=== PATIENT | female | born 1940 | race African-American/Black ===

== ENCOUNTER 2019-09-01 15:32 | Observation (INO) | payer OTHER ==
[2019-09-01 16:55] LABS: Absolute Lymphocytes (CBC) 0.2 K/uL (0.7-4.9); Basophils % 0.2 % (0-1.3); Hematocrit 45.6 % (36.0-45.0); Lymphocytes % 2.1 % (15.3-44.8); MPV 9.4 fL (7.6-11.3); RBC Red Blood Cell Count 5.25 M/uL (3.86-4.86)
[2019-09-01 16:56] LABS: Protime INR 1.34
[2019-09-01 17:10] LABS: ALT/SGPT 25 U/L (12-78); Albumin 3.1 g/dL (3.4-5.0); Alkaline Phosphatase 100 U/L (45-117); BUN Blood Urea Nitrogen 28 mg/dL (7-18); Bicarbonate 25 mmol/L (21-32); Bilirubin Direct 0.5 mg/dL (0-0.2); Bilirubin Total 1.3 mg/dL (0.2-1.0); Glucose Level 104 mg/dL (74-106); NT PRO-BNP 559 pg/mL (<450); Protein, Total 7.7 g/dL (6.4-8.2); Sodium Level 135 mmol/L (136-145); Troponin (Emerg Dept Use Only) < 0.02 ng/mL (0.0-0.045)
[2019-09-01 17:11] LABS: AST/SGOT 46 U/L (15-37); Magnesium 1.6 mg/dL (1.8-2.4); Potassium 3.5 mmol/L (3.5-5.1)
[2019-09-01 17:15] LABS: Urine Bacteria <20 /HPF (<20); Urine Culture Reflex Order NOT NEEDED
[2019-09-01 17:16] LABS: Urine Blood 3+ (NEG); Urine Glucose NEGATIVE (NEG); Urine Protein 3+ (NEG); Urine Specific Gravity >1.030 (1.005-1.030); Urine pH 5.5 (5.0-7.0)
[2019-09-01 17:16] LABS: Urine Coarse Granular Casts 0-5 /LPF (NONE SEEN); Urine Mucus 2+ /HPF (NONE SEEN)
[2019-09-01] MEDS ORDERED: ACETAMINOPHEN 325 MG TABLET ONE (17:41)
[2019-09-01] MEDS ORDERED: NA CHLORIDE 0.9% 250 ML ONE (17:41)
[2019-09-01] MEDS ORDERED: CEFTRIAXONE/SWI 1gm 1 GM/10 ML SYR ONE (17:47)
[2019-09-01 18:08] LABS: Blood Morphology Comment NOT SEEN (NOT SEEN); Platelet Estimate DECR; White Blood Cell Scan OK
[2019-09-01] MEDS ORDERED: PIPER/TAZO/NS 3.375gm 3.375 GM/100 ML BAG ONE (19:07)
[2019-09-01] MEDS ORDERED: MORPHINE 4 MG/ML SYR IV PRN (20:48)
[2019-09-01] MEDS ORDERED: ONDANSETRON 4 MG/2 ML VIAL IV PRN (20:48)
[2019-09-01] MEDS ORDERED: ACETAMINOPHEN 500 MG TAB PO PRN (20:48)
[2019-09-01] MEDS ORDERED: Levofloxacin500mg IV 500 MG/100 ML BAG IV SCH (21:00)
[2019-09-01] MEDS: NA CHLORIDE 0.9% 1,000 ML IV SCH (21:00)
--- NOTE | 2019-09-01 21:40 | EDPHYS ---
[facility] Name: Negrita Shields Age: 78 yrs Sex: Female : 1940 Arrival Date: 09/01/2019 Time: 15:39 Bed 25 Private MD: ED Physician Pardeep Man HPI: 08/31 15:44 This 78 yrs old Black Female presents to ER via EMS with complaints of Shortness Of jmm Breath. 15:44 The patient has shortness of breath at rest. Onset: The symptoms/episode began/occurred jmm gradually, 1 day(s) ago. Duration: The symptoms are continuous. The patient's shortness of breath is aggravated by nothing, is alleviated by nothing. Associated signs and symptoms: Pertinent negatives: non-productive cough, productive cough. This is a 78 year old female with a history of htn, HLP that presents to the ED with complaints of weakness, shortness of breath beginning yesterday. . Historical: - Allergies: 15:43 No Known Allergies; ll1 - PMHx: 15:43 Hypertension; High Cholesterol; ll1 - Immunization history:: Adult Immunizations up to date. - Social history:: Patient/guardian denies using street drugs, Smoking status: Patient denies any tobacco usage or history of. ROS: 17:08 Constitutional: Positive for fever. jmm 17:08 Respiratory: Positive for shortness of breath. 17:08 Abdomen/GI: Negative for nausea and vomiting, vomiting. 17:08 All other systems are negative. Exam: 17:08 Constitutional: This is a well developed, well nourished patient who is awake, alert, jmm and in no acute distress. Head/Face: atraumatic. Eyes: EOMI, no conjunctival erythema appreciated ENT: Moist Mucus Membranes Neck: Trachea midline, Supple Chest/axilla: Normal chest wall appearance and motion. Cardiovascular: Regular rate and rhythm. No edema appreciated Respiratory: Normal respirations, no respiratory distress appreciated Abdomen/GI: Non distended, soft Back: Normal ROM Skin: General appearance color normal MS/ Extremity: Moves all extremities, no obvious deformities appreciated, no edema noted to the lower extremities Neuro: Awake and alert, normal gait Psych: Behavior is normal, Mood is normal, Patient is cooperative and pleasant Vital Signs: 15:35 BP 107 / 61; Pulse 86; Resp 24; Pulse Ox 94% on R/A; jr10 15:39 BP 107 / 61; Pulse 85; Resp 24; Temp 100.6; Pulse Ox 94% on R/A; Pain 0/10; ll1 16:00 BP 115 / 73; Pulse 90; Resp 20; Pulse Ox 96% on R/A; jr10 17:48 BP 95 / 62; Pulse 81; Resp 20; Pulse Ox 93% on R/A; Pain 0/10; jr10 19:13 Pulse 75; Resp 17; Temp 98.0(O); Pulse Ox 95% ; Pain 0/10; mt2 20:28 BP 107 / 64; Pulse 71; Resp 16; Pulse Ox 95% ; Pain 0/10; mt2 21:04 BP 115 / 64; Pulse 18; Resp 19; Temp 98.4(O); Pulse Ox 95% ; Pain 0/10; mt2 22:00 BP 109 / 61; Pulse 83; Resp 17; Pulse Ox 96% on R/A; Pain 0/10; mt2 23:13 BP 111 / 64; Pulse 16; Resp 65; Pulse Ox 94% on R/A; Pain 0/10; mt2 09/01 00:00 BP 113 / 63; Pulse 67; Resp 16; Pulse Ox 96% on R/A; Pain 0/10; 01:00 BP 116 / 64; Pulse 65; Resp 17; Pulse Ox 96% on R/A; Pain 0/10; mt2 02:00 BP 121 / 60; Pulse 72; Resp 19; Pulse Ox 96% on R/A; Pain 0/10; mt2 MDM: 08/31 15:44 Patient medically screened. [facility] 20:22 Data reviewed: vital signs, nurses notes. ED course: I discussed the patient with Dr. evon Fair and Dr. Roland whom accepted admission. . 08/31 15:45 Order name: Basic Metabolic Panel; Complete Time: 17:13 [facility] 08/31 15:45 Order name: CBC with Diff; Complete Time: 18:14 [facility] 08/31 15:45 Order name: LFT's; Complete Time: 17:13 [facility] 08/31 15:45 Order name: Magnesium; Complete Time: 17:13 [facility] 08/31 15:45 Order name: NT PRO-BNP; Complete Time: 17:13 [facility] 08/31 15:45 Order name: PT-INR; Complete Time: 17:09 [facility] 08/31 15:45 Order name: Troponin (emerg Dept Use Only); Complete Time: 17:13 [facility] 08/31 15:45 Order name: COVID-19 [facility] 08/31 15:45 Order name: Urine Microscopic Only; Complete Time: 17:21 [facility] 08/31 15:57 Order name: Procalcitonin; Complete Time: 17:22 [facility] 08/31 15:57 Order name: Blood Culture Adult (2) [facility] 08/31 15:57 Order name: Lactate; Complete Time: 17:13 [facility] 08/31 15:57 Order name: Urine Culture [facility] 08/31 16:58 Order name: CBC Smear Scan; Complete Time: 18:14 [facility] 08/31 15:45 Order name: XRAY Chest (1 view) [facility] 08/31 17:00 Order name: Urine Dipstick--Ancillary (enter results); Complete Time: 17:21 ar 08/31 18:53 Order name: Lipase; Complete Time: 19:19 [facility] 08/31 20:22 Order name: Lactate Sepsis 2 HR Follow-up; Complete Time: 20:22 [facility] 08/31 20:52 Order name: CBC with Automated Diff [facility] 08/31 20:52 Order name: CBC with Automated Diff [facility] 08/31 20:52 Order name: Comprehensive Metabolic Panel [facility] 08/31 20:52 Order name: Comprehensive Metabolic Panel [facility] 08/31 20:52 Order name: Lipid Profile [facility] 08/31 20:52 Order name: Lipid Profile [facility] 08/31 20:52 Order name: Protime (+INR) [facility] 08/31 20:52 Order name: Protime (+INR) [facility] 08/31 20:52 Order name: PTT, Activated Partial Thromb [facility] 08/31 20:52 Order name: PTT, Activated Partial Thromb [facility] 08/31 22:14 Order name: Protime (+INR); Complete Time: 22:15 [facility] 08/31 22:14 Order name: PTT, Activated Partial Thromb; Complete Time: 22:15 [facility] 08/31 15:45 Order name: EKG; Complete Time: 15:46 [facility] 08/31 15:45 Order name: Cardiac monitoring; Complete Time: 15:51 [facility] 08/31 15:45 Order name: EKG - Nurse/Tech; Complete Time: 16:57 [facility] 08/31 15:45 Order name: IV Saline Lock; Complete Time: 15:51 [facility] 08/31 15:45 Order name: Labs collected and sent; Complete Time: 16:57 [facility] 08/31 15:45 Order name: O2 Per Protocol; Complete Time: 15:51 [facility] 08/31 15:45 Order name: O2 Sat Monitoring; Complete Time: 15:51 [facility] 08/31 15:45 Order name: Urine Dipstick-Ancillary (obtain specimen); Complete Time: 16:55 [facility] 08/31 17:22 Order name: CT Chest For PE Angio [facility] 08/31 17:22 Order name: CT Abd/Pelvis - IV Contrast Only [facility] 08/31 18:46 Order name: US Abdomen Limited [facility] 08/31 20:52 Order name: CONS Pharmacy Consult [facility] 08/31 20:52 Order name: CONS Physician Consult [facility] 08/31 20:52 Order name: NPO [facility] 08/31 21:57 Order name: CT; Complete Time: 22:01 [facility] 08/31 22:00 Order name: CT; Complete Time: 22:01 [facility] 08/31 22:45 Order name: US; Complete Time: 22:59 [facility] 08/31 22:47 Order name: RAD; Complete Time: 22:59 EDMO Administered Medications: 17:47 Drug: Rocephin - (cefTRIAXone) 1 grams {Note: slow IVP per pharmacy formulary and [facility] protocol.} Route: IVPB; Infused Over: 30 mins; Site: right femoral; 19:00 Follow up: IV Status: Completed infusion mt2 19:01 Follow up: Response: No adverse reaction jr10 17:48 Drug: Tylenol 650 mg Route: PO; jr10 19:04 Follow up: Response: No adverse reaction 10 17:48 Drug: NS 0.9% 250 ml Route: IV; Rate: calculated rate; Site: right forearm; jr10 18:59 Follow up: Response: No adverse reaction; IV Status: Completed infusion 10 19:12 Drug: Zosyn 3.375 grams Route: IVPB; Infused Over: 60 mins; Site: left forearm; mt2 19:53 Follow up: Response: No adverse reaction; IV Status: Completed infusion mt2 19:57 Drug: NS 0.9% 1000 ml Route: IV; Rate: 1 bolus; Site: left forearm; mt2 21:01 Follow up: Response: No adverse reaction; IV Status: Completed infusion; IV Intake: mt2 1000ml Disposition: 09/01/19 20:30 Hospitalization ordered by Parag Roland for Inpatient Admission. Preliminary diagnosis is Acute cholecystitis. - Bed requested for Telemetry/MedSurg (Inpatient). - Status is Inpatient Admission. sv - Condition is Stable. - Problem is new. - Symptoms are unchanged. Addendum: 09/03/2019 23:06 Co-signature as Attending Physician, Pardeep Man MD. r n Signatures: Dispatcher [employer] EDAlexandra Young Stephanie, RN RN Awais Potts PA PA jmm Nieto, Roman, MD MD rn Garcia, Cindy RN TYE Jose Alejandro Herrera RN RN 1 Suly Tellez RN RN ar2 Yue Romero, RN RN jr10 Corrections: (The following items were deleted from the chart) 08/31 21:56 20:30 Hospitalization Ordered by Parag Roland MD for Inpatient Admission. Preliminary cg diagnosis is Acute cholecystitis. Bed requested for Telemetry/MedSurg (Inpatient). Status is Inpatient Admission. Condition is Stable. Problem is new. Symptoms are unchanged. [facility] 09/01 08:46 08/31 21:56 09/01/2019 20:30 Hospitalization Ordered by Parag Roland MD for Inpatient bd Admission. Preliminary diagnosis is Acute cholecystitis. Bed requested for [facility] ER HOLD. Status is Inpatient Admission. Condition is Stable. Problem is new. Symptoms are unchanged. 09/01 09:36 08:46 09/01/2019 20:30 Hospitalization Ordered by Parag Roland MD for Inpatient sv Admission. Preliminary diagnosis is Acute cholecystitis. Bed requested for Telemetry/MedSurg (Inpatient). Status is Inpatient Admission. Condition is Stable. Problem is new. Symptoms are unchanged. bd
--- NOTE | 2019-09-01 21:40 | ER ---
Nurse's Notes [facility] Name: Negrita Shields Age: 78 yrs Sex: Female : 1940 Arrival Date: 09/01/2019 Time: 15:39 Bed 25 Private MD: Diagnosis: Acute cholecystitis Presentation: 08/31 15:39 Chief complaint: EMS states: EMS was called by patients daughter for SOB and altered ll1 mental status. EMS had to help her up, unable to move well. EMS reported strong smell of urine, possible UTI. Patient didn't know she had fever. 20 G L wrist 200 ml NS bolus given. Fingerstick 114. 91% RA initially, HR 97, resp 30 for EMS. Coronavirus screen: Patient reports a cough. Patient reports shortness of breath or difficulty breathing. Patient reports a measured and/or subjective temperature greater than 100.4F. Patient denies travel on a cruise ship or to a country the [facility] currently lists as an affected area. Patient denies contact with known and/or suspected case of COVID-19. Patient instructed to continue to wear a mask when interacting with others. Patient moved to private room, placed in contact and droplet isolation with eye protection until further assessment. Ebola Screen: Patient denies travel to an Ebola-affected area in the 21 days before illness onset. Initial Sepsis Screen: Does the patient meet any 2 criteria? RR > 20 per min. Risk Assessment: Do you want to hurt yourself or someone else? Patient reports no desire to harm self or others. Onset of symptoms was September 01, 2019. 15:39 Method Of Arrival: EMS ll1 15:39 Acuity: TAYLOR 3 ll1 19:30 Initial Sepsis Screen: Does the patient have a suspected source of infection? Yes: mt2 Acute abdominal pain. Triage Assessment: 19:30 Respiratory: Reports. mt2 19:30 Respiratory: Onset: The symptoms/episode began/occurred gradually. mt2 22:00 General: Appears in no apparent distress. Behavior is cooperative. Respiratory: Airway mt2 is patent Respiratory effort is unlabored, Respiratory pattern is regular. Historical: - Allergies: 15:43 No Known Allergies; ll1 - PMHx: 15:43 Hypertension; High Cholesterol; ll1 - Immunization history:: Adult Immunizations up to date. - Social history:: Patient/guardian denies using street drugs, Smoking status: Patient denies any tobacco usage or history of. Screenin:00 Abuse screen: Denies threats or abuse. Denies injuries from another. Nutritional jr10 screening: No deficits noted. Tuberculosis screening: No symptoms or risk factors identified. Fall Risk No fall in past 12 months (0 pts). No secondary diagnosis (0 pts). IV access (20 points). Ambulatory Aid- Crutches/Cane/Walker (15 pts). Gait- Weak (10 pts.). Mental Status- Oriented to own ability (0 pts). Assessment: 16:00 Reassessment: Pt family contact information Bushra (daughter): [phone]. General: jr10 Appears in no apparent distress. Behavior is calm, cooperative. Pain: Denies pain. Neuro: No deficits noted. Level of Consciousness is awake, alert, obeys commands, Oriented to person, place, time. Cardiovascular: No deficits noted. Rhythm is regular. Respiratory: Airway is patent Respiratory effort is even, unlabored, Respiratory pattern is symmetrical, tachypnea the patient has mild shortness of breath Parent/caregiver reports the patient having shortness of breath at rest EMS reports RA sats 91%, pt noted to be 95% on RA upon arrival, denies the use of chronic home O2 use. GI: No deficits noted. : Denies burning with urination, inability to void, pain with urination flank(s) Parent/caregiver report the patient having family reports that pt urine "smells like a UTI". EENT: Oral mucosa is dry. Derm: No deficits noted. Musculoskeletal: No deficits noted. 19:13 Reassessment: Patient and/or family updated on plan of care and expected duration. Pain mt2 level reassessed. Patient denies pain at this time. Respiratory: Airway is patent Respiratory effort is unlabored, Respiratory pattern is regular. 20:27 Reassessment: Patient and/or family updated on plan of care and expected duration. Pain mt2 level reassessed. Patient denies pain at this time. General: Appears comfortable, Behavior is cooperative. Respiratory: Airway is patent Breath sounds are diminished bilaterally. in left posterior lower lobe and right posterior lower lobe. 21:03 Reassessment: Patient and/or family updated on plan of care and expected duration. Pain mt2 level reassessed. PT TO BE ADMITTED. DAUGHTER BROUGHT IN SUITCASE AND PICKED UP ID AND HOME MEDS Patient denies pain at this time. General: Appears comfortable, Behavior is cooperative. 22:00 Reassessment: Patient and/or family updated on plan of care and expected duration. Pain mt2 level reassessed. PATIENT NOTIFIED OF ED HOLD Patient denies pain at this time. 23:07 Reassessment: Patient and/or family updated on plan of care and expected duration. Pain mt2 level reassessed. Patient denies pain at this time. General: Appears in no apparent distress. comfortable, Behavior is cooperative. Pain: Denies pain. 09/01 00:00 General: Appears in no apparent distress. comfortable, Behavior is calm, quiet. wh 00:41 Reassessment: Patient and/or family updated on plan of care and expected duration. Pain wh level reassessed. Patient denies pain at this time. 01:20 Reassessment: Patient and/or family updated on plan of care and expected duration. Pain mt2 level reassessed. Patient denies pain at this time. General: Appears in no apparent distress. comfortable, Behavior is calm, quiet. 02:00 Reassessment: Patient and/or family updated on plan of care and expected duration. Pain mt2 level reassessed. Patient denies pain at this time. General: Appears in no apparent distress. comfortable, Behavior is calm, quiet. Vital Signs: 08/31 15:35 BP 107 / 61; Pulse 86; Resp 24; Pulse Ox 94% on R/A; jr10 15:39 BP 107 / 61; Pulse 85; Resp 24; Temp 100.6; Pulse Ox 94% on R/A; Pain 0/10; ll1 16:00 BP 115 / 73; Pulse 90; Resp 20; Pulse Ox 96% on R/A; jr10 17:48 BP 95 / 62; Pulse 81; Resp 20; Pulse Ox 93% on R/A; Pain 0/10; jr10 19:13 Pulse 75; Resp 17; Temp 98.0(O); Pulse Ox 95% ; Pain 0/10; mt2 20:28 BP 107 / 64; Pulse 71; Resp 16; Pulse Ox 95% ; Pain 0/10; mt2 21:04 BP 115 / 64; Pulse 18; Resp 19; Temp 98.4(O); Pulse Ox 95% ; Pain 0/10; mt2 22:00 BP 109 / 61; Pulse 83; Resp 17; Pulse Ox 96% on R/A; Pain 0/10; mt2 23:13 BP 111 / 64; Pulse 16; Resp 65; Pulse Ox 94% on R/A; Pain 0/10; mt2 09/01 00:00 BP 113 / 63; Pulse 67; Resp 16; Pulse Ox 96% on R/A; Pain 0/10; 01:00 BP 116 / 64; Pulse 65; Resp 17; Pulse Ox 96% on R/A; Pain 0/10; mt2 02:00 BP 121 / 60; Pulse 72; Resp 19; Pulse Ox 96% on R/A; Pain 0/10; mt2 ED Course: 08/31 15:39 Patient arrived in ED. ll1 15:40 Awais Yin PA is PHCP. m 15:40 Pardeep Man MD is Attending Physician. m 15:42 Triage completed. ll1 15:43 Arm band placed on Patient placed in an exam room, on a stretcher. ll1 15:45 Maintain EMS IV. Dressing intact. Good blood return noted. Gauge \\T\\ site: 20 G to left jr10 hand, saline locked at present. 15:49 Yue Romero RN is Primary Nurse. jr10 16:00 No apparent distress. jr10 16:00 Patient has correct armband on for positive identification. Placed in gown. Bed in low jr10 position. Call light in reach. Side rails up X2. child monitor on. Pulse ox on. NIBP on. 16:00 Inserted saline lock: 20 gauge in left forearm, using aseptic technique. IV is patent, jr10 is intact, Flushed. 16:00 First set of blood cultures drawn by ED staff. jp3 16:15 Second set of blood cultures drawn by me. jp3 19:06 Report given to TYE Tubbs. jr10 19:12 Primary Nurse role handed off by Yue Romero, TYE mt2 19:12 Suly Tellez RN is Primary Nurse. mt2 19:20 Repeat lab(s) drawn. by tx, sent to lab. jp3 19:30 No provider procedures requiring assistance completed. mt2 20:30 Parag Roland MD is Hospitalizing Provider. [facility] 22:41 Patient admitted, IV remains in place. mt2 Administered Medications: 17:47 Drug: Rocephin - (cefTRIAXone) 1 grams {Note: slow IVP per pharmacy formulary and 10 protocol.} Route: IVPB; Infused Over: 30 mins; Site: right femoral; 19:00 Follow up: IV Status: Completed infusion mt2 19:01 Follow up: Response: No adverse reaction jr10 17:48 Drug: Tylenol 650 mg Route: PO; jr10 19:04 Follow up: Response: No adverse reaction jr10 17:48 Drug: NS 0.9% 250 ml Route: IV; Rate: calculated rate; Site: right forearm; jr10 18:59 Follow up: Response: No adverse reaction; IV Status: Completed infusion jr10 19:12 Drug: Zosyn 3.375 grams Route: IVPB; Infused Over: 60 mins; Site: left forearm; mt2 19:53 Follow up: Response: No adverse reaction; IV Status: Completed infusion mt2 19:57 Drug: NS 0.9% 1000 ml Route: IV; Rate: 1 bolus; Site: left forearm; mt2 21:01 Follow up: Response: No adverse reaction; IV Status: Completed infusion; IV Intake: mt2 1000ml Intake: 21:01 IV: 1000ml; Total: 1000ml. mt2 Outcome: 20:30 Decision to Hospitalize by Provider. [facility] 22:41 Admitted to ER Hold. Please see [facility] for further documentation. mt2 22:41 Condition: stable 22:41 Instructed on the need for admit. 09/01 09:36 Patient left the ED. sv Signatures: Patience Trevizo RN Awais Douglas PA PA [facility] Enid Cali Jacob jp3 Jose Alejandro Herrera RN RN ll1 Suly Tlelez RN RN mt2 Yue Romero RN RN jr10
--- NOTE | 2019-09-01 21:46 | RAD REPORT ---
EXAM DESCRIPTION: CT - Chest For Pe Angio - 09/01/2019 9:39 pm CLINICAL HISTORY: Chest pain. SOB COMPARISON: No comparisons TECHNIQUE: CT angiogram of the pulmonary arteries was performed with MIP. All CT scans are performed using dose optimization technique as appropriate and may include automated exposure control or mA/KV adjustment according to patient size. FINDINGS: No evidence of pulmonary thromboembolism. No acute aortic finding demonstrated. Mild linear atelectasis is seen in the right lung base. The lungs are otherwise clear. No significant pericardial or pleural fluid. No concerning bony finding. IMPRESSION: No evidence of pulmonary thromboembolism. Mild right lung base linear atelectasis.
--- NOTE | 2019-09-01 21:55 | RAD REPORT ---
EXAM DESCRIPTION: CTAbdomen Pelvis W Contrast - 09/01/2019 9:39 pm CLINICAL HISTORY: Abdominal pain. SOB, UTI COMPARISON: No comparisons TECHNIQUE: Biphasic CT imaging of the abdomen and pelvis was performed with 100 ml non-ionic IV cont rast. All CT scans are performed using dose optimization technique as appropriate and may include automated exposure control or mA/KV adjustment according to patient size. FINDINGS: The lung bases are clear. The liver, spleen, pancreas, adrenal glands and kidneys are within normal limits. Gallbladder is sign ificantly inflamed and enlarged compatible with acute cholecystitis. No abscess evident. No bowel obstruction, free air, free fluid or abscess. The appendix is normal. No evidence of signi ficant lymphadenopathy. Calcified fibroids are present in the uterus. Moderate lumbosacral degenerative changes. IMPRESSION: Acute cholecystitis.
[2019-09-01 22:12] LABS: Protime INR 1.35
--- NOTE | 2019-09-01 22:41 | RAD REPORT ---
EXAM DESCRIPTION: US - Abdomen Exam Limited - 09/01/2019 10:14 pm CLINICAL HISTORY: FEVER Right upper quadrant pain COMPARISON: <Comparisons> FINDINGS: The gallbladder demonstrates large shadowing gallstone. Gallbladder wall is thickened with pericholecystic inflammatory fluid present. The common bile duct is normal measuring 4 mm. The liver demonstrates no findings of intrahepatic biliary dilatation. IMPRESSION: Acute cholecystitis.
--- NOTE | 2019-09-01 22:46 | RAD REPORT ---
EXAM DESCRIPTION: RAD - Chest Single View - 09/01/2019 10:20 pm CLINICAL HISTORY: SOB Chest pain. COMPARISON: Chest Single View dated 03/05/2017; Chest For Pe Angio dated 09/01/2019 FINDINGS: Portable technique limits examination quality. The lungs are grossly clear. The heart is normal in size. No displaced fractures. IMPRESSION: No acute intrathoracic process suspected.
[2019-09-02 00:53] VITALS: BMI 40.4
[2019-09-02] MEDS ORDERED: NA CHLORIDE 0.9% 1,000 ML ONE (01:12)
[2019-09-02] MEDS ORDERED: METRONIDAZOLE 500mg IVPB 500 MG/100 ML BAG IV ONE ×2 (01:12→05:27)
[2019-09-02] MEDS ORDERED: Levofloxacin500mg IV 500 MG/100 ML BAG IV ONE ×2 (02:00→02:52)
[2019-09-02 04:20] LABS: Protime INR 1.3
[2019-09-02 04:27] LABS: Absolute Lymphocytes (CBC) 0.6 K/uL (0.7-4.9); Basophils % 0.2 % (0-1.3); Hematocrit 40.6 % (36.0-45.0); Lymphocytes % 5.1 % (15.3-44.8); MPV 9.3 fL (7.6-11.3); RBC Red Blood Cell Count 4.61 M/uL (3.86-4.86)
[2019-09-02 04:32] LABS: Albumin 2.5 g/dL (3.4-5.0); Bilirubin Total 0.8 mg/dL (0.2-1.0); Potassium 3.3 mmol/L (3.5-5.1); Protein, Total 6.9 g/dL (6.4-8.2)
[2019-09-02] MEDS: METRONIDAZOLE 500mg IVPB 500 MG/100 ML BAG IV SCH ×3 (05:16→11:07)
[2019-09-02 10:12] VITALS: O2SAT 96
--- NOTE | 2019-09-02 10:54 | EKG ---
Test Date: 2019-09-01 Test Time: 16:25:56 Title Vehicle Service Attendant: KAILA MEASUREMENT RESULTS: Intervals: Rate: 84 MD: 140 QRSD: 90 QT: 354 QTc: 418 [place]: P: 59 MD: 140 QRS: 36 T: 69 INTERPRETIVE STATEMENTS: Normal sinus rhythm Normal ECG Compared to ECG 03/05/2017 15:33:30 Sinus bradycardia no longer present Electronically Signed On 09-02-19 10:53:22 CDT by Gui Jennings
[2019-09-02] MEDS: NA CHLORIDE 0.9% 1,000 ML IV SCH (10:55)
--- NOTE | 2019-09-02 11:16 | P.HP ---
Certification for Inpatient Patient admitted to: Observation With expected LOS: <2 Midnights Patient will require the following post-hospital care: None Practitioner: I am a practitioner with admitting privileges, knowledge of patient current condition, hospital course, and medical plan of care. Services: Services provided to patient in accordance with Admission requirements found in Title 42 Section 412.3 of the Code of Federal Regulations Patient History Date of Service: 09/01/19 Reason for admission: Epigastric tenderness; intractable nausea vomiting History of Present Illness: patient is a 78-year-old female who came to the hospital with abdominal pain. Pain was mainly in the right upper quadrant. CT revealed that patient may have obstructive stone. Patient's diagnosis was acute cholecystitis. However, patient's clinical symptoms are markedly improving. Patient will be admitted to the hospital for further workup. Since her pain improved and will dispense the surgery if need to repeat any imaging studies. If clinically doing much better and possibly go home with outpatient follow up in the morning. Allergies No Known Allergies Allergy (Verified 09/02/19 01:46) Home Medications: Atenolol [Tenormin] 1 tab PO DAILY 09/02/19 Simvastatin 20 mg PO BEDTIME 09/02/19 Valsartan/Hydrochlorothiazide [Valsartan-Hctz 160-12.5 mg Tab] 1 tab PO DAILY 09/02/19 - Past Medical/Surgical History Has patient received pneumonia vaccine in the past: Yes Diabetic: No -: HYPERTENSION -: HIGH CHOLESTEROL Past Surgical History: Patient denies surgical history - Family History Father Family History: Reviewed- Non-Contributory - Social History Smoking Status: Never smoker Alcohol use: No CD- Drugs: No Caffeine use: Yes Place of Residence: Home Review of Systems 10-point ROS is otherwise unremarkable Physical Examination - Vital Signs Temperature: 98.3 F Blood Pressure: 150/74 Pulse: 70 Respirations: 18 Pulse Ox (%): 95 - Physical Exam General: Alert, In no apparent distress, Oriented x3 HEENT: Atraumatic, PERRLA, Mucous membr. moist/pink, EOMI, Sclerae nonicteric Neck: Supple, 2+ carotid pulse no bruit, No LAD, Without JVD or thyroid abnormality Respiratory: Clear to auscultation bilaterally, Normal air movement Cardiovascular: Regular rate/rhythm, Normal S1 S2, No murmurs Gastrointestinal: Normal bowel sounds, Soft and benign, Non-distended, No tenderness Musculoskeletal: No tenderness Integumentary: No rashes Neurological: Normal gait, Normal speech, Normal strength at 5/5 x4 extr, Normal tone, Sensation intact, Cranial nerves 3-12 intact, Normal affect Lymphatics: No axilla or inguinal lymphadenopathy - Studies Laboratory Data (last 24 hrs) 09/01/19 16:14: Lipase 27 L 09/01/19 16:14: PT 15.7 H, INR 1.34 09/01/19 16:14: WBC 11.8 H, Hgb 15.0, Hct 45.6 H, Plt Count 154 09/01/19 16:14: Sodium 135 L, Potassium 3.5, BUN 28 H, Creatinine 1.50 H, Glucose 104, Magnesium 1.6 L, Total Bilirubin 1.3 H, AST 46 H, ALT 25, Alkaline Phosphatase 100 Assessment & Plan - Problems (Diagnosis) (1) Right upper quadrant abdominal pain Current Visit: Yes Status: Acute (2) Acute cholecystitis Current Visit: Yes Status: Acute - Plan Plan: 1. IV antibiotics 2. Pain medication as tolerated 3. advanced diet in the morning 4. discuss with surgery further options for patient's care 5. GI DVT prophylaxis Discharge Plan: Home Plan to discharge in: 48 Hours - Advance Directives Does patient have a Living Will: No Does patient have a Durable POA for Healthcare: No - Code Status/Comfort Care Code Status Assessed: Yes Code Status: Full Code Critical Care: No Time Spent Managing PTS Care (In Minutes): 50
[2019-09-02 12:34] LABS: Absolute Lymphocytes (CBC) 0.5 K/uL (0.7-4.9); Basophils % 0.2 % (0-1.3); Hematocrit 42.9 % (36.0-45.0); Lymphocytes % 4.4 % (15.3-44.8); MPV 8.9 fL (7.6-11.3); RBC Red Blood Cell Count 4.87 M/uL (3.86-4.86)
[2019-09-02 12:36] VITALS: BP 147/75; TEMP 99
[2019-09-02 12:42] LABS: Potassium 3.1 mmol/L (3.5-5.1)
--- NOTE | 2019-09-02 14:44 | P.DS ---
Admission Date: 09/01/19 Discharge Date: 09/03/19 Disposition: ROUTINE DISCHARGE Discharge Condition: GOOD Reason for Admission: Epigastric tenderness; intractable nausea vomiting Brief History of Present Illness: 78-year-old female who came to the hospital with abdominal pain. Pain was mainly in the right upper quadrant. CT revealed that patient may have obstructive stone. Patient's diagnosis was acute cholecystitis. However, patient's clinical symptoms are markedly improving. Patient will be admitted to the hospital for further workup. Since her pain improved and will dispense the surgery if need to repeat any imaging studies. If clinically doing much better and possibly go home with outpatient follow up in the morning. Hospital Course: The patient was admitted and was monitored closely. started on IV antibiotics along with pain control. The patient was started on IV hydration as well. Surgery was consulted. Surgery recommended conservative management with outpatient follow up and continued antibiotic. Patient wanted go home as well and is being discharged home today in a stable condition with advice to follow up with PCP in 1 week and also with surgery in 1-2 weeks Vital Signs/Physical Exam: Temp Pulse Resp BP Pulse Ox 99 F 72 20 147/75 H 95 09/02/19 12:00 09/02/19 12:00 09/02/19 12:00 09/02/19 12:00 09/02/19 12:00 General: Alert, In no apparent distress HEENT: Atraumatic, Normocephalic Neck: Supple Respiratory: Clear to auscultation bilaterally Cardiovascular: Regular rate/rhythm, Normal S1 S2 Capillary refill: <2 Seconds Gastrointestinal: Soft and benign, W/out hepatosplenomegaly, No tenderness Musculoskeletal: No clubbing Integumentary: No rashes, No significant lesion Neurological: Normal speech, Normal strength at 5/5 x4 extr Lymphatics: No axilla or inguinal lymphadenopathy Laboratory Data at Discharge: WBC 11.6 K/uL (4.3-10.9) H 09/02/19 12:13 Hgb 14.1 g/dL (12.0-15.0) 09/02/19 12:13 Hct 42.9 % (36.0-45.0) 09/02/19 12:13 Plt Count 130 K/uL (152-406) L 09/02/19 12:13 PT 15.3 SECONDS (9.5-12.5) H 09/02/19 03:50 INR 1.30 09/02/19 03:50 APTT 28.8 SECONDS (24.3-36.9) 09/02/19 03:50 Sodium 141 mmol/L (136-145) 09/02/19 12:13 Potassium 3.1 mmol/L (3.5-5.1) L 09/02/19 12:13 BUN 25 mg/dL (7-18) H 09/02/19 12:13 Creatinine 1.08 mg/dL (0.55-1.3) 09/02/19 12:13 Glucose 85 mg/dL (74-106) 09/02/19 12:13 Magnesium 1.6 mg/dL (1.8-2.4) L 09/01/19 16:14 Total Bilirubin 0.8 mg/dL (0.2-1.0) 09/02/19 03:50 AST 44 U/L (15-37) H 09/02/19 03:50 ALT 22 U/L (12-78) 09/02/19 03:50 Alkaline Phosphatase 72 U/L (45-117) 09/02/19 03:50 Triglycerides 130 mg/dL (<150) 09/02/19 03:50 Cholesterol 119 mg/dL (<200) 09/02/19 03:50 HDL Cholesterol 17 mg/dL (40-60) L 09/02/19 03:50 Cholesterol/HDL Ratio 7.00 09/02/19 03:50 Lipase 27 U/L (73-393) L 09/01/19 16:14 Home Medications: Amox/Clavulanate [Augmentin 875-125 Tab] 1 each PO BID #14 tab 09/02/19 Atenolol [Tenormin] 1 tab PO DAILY 09/02/19 Codeine/APAP [Tylenol W/Codeine #3 tab] 1 tab PO Q6HP PRN #15 tab 09/02/19 Pantoprazole [Protonix Tab] 40 mg PO DAILY #10 tab 09/02/19 Simvastatin 20 mg PO BEDTIME 09/02/19 Valsartan/Hydrochlorothiazide [Valsartan-Hctz 160-12.5 mg Tab] 1 tab PO DAILY 09/02/19 New Medications: Amox/Clavulanate [Augmentin 875-125 Tab] 1 each PO BID #14 tab Pantoprazole [Protonix Tab] 40 mg PO DAILY #10 tab Codeine/APAP [Tylenol W/Codeine #3 tab] 1 tab PO Q6HP PRN #15 tab PRN Reason: Pain Patient Discharge Instructions: OK TO DC IV AND DC HOME. FOLLOW-UP WITH PRIMARY CARE PROVIDER IN 1-2 WEEKS. FOLLOW-UP WITH SURGERY IN 1-2 WEEKS. RETURN TO THE ER IF SYMPTOMS WORSEN. CALL DR. LEVY AT [phone] IF ANY QUESTIONS REGARDING HOSPITAL STAY. PLEASE CALL THE FLOOR AT [phone] IF ANY MEDICATION OR NURSING QUESTIONS. Diet: Regular Activity: Fall precautions Followup: Lev Fair MD [ACTIVE - CAN ADMIT] - Time spent managing pt's care (in minutes): 40
--- NOTE | 2019-09-02 14:45 | P.CNS ---
Date of Consult: 09/02/19 PC: I was asked to see this 78-year-old female regards to her right upper quadrant abdominal pain for diagnosis and treatment. HPC: Patient experiencing sh upper abdominal pain last night. Describes it as very severe, not as bad as labor pain. Radiating straight to her back, between her shoulder blades right along her bra line. She has been having this pain off and on for the last few months. Said this is the worst it has ever been. She is not sure what triggers it, but it seen to be food related. PMH: Has had some heart problems in the past PSHx: Denies any prior surgeries SOC: No known allergies SYS REVIEW: No cough, wheeze, shortness of breath. No chest pain or palpitations. Denies any urinary complaints. Says she is very independent, is able to look after herself at home. O/E awake alert vital signs are stable patient is hungry, asking for food and anxious to go home. HEENT: Not jaundice Chest: Chest movement equal bilateral ABD: Obese but soft nontender no masses palpable. No guarding or rebound. LOCO: Intact DATA: Has documented gallstones, miles cystitis IMPRESSION: Chronic coli cystitis with biliary colic PLAN: The patient at the current time appears to be pain free responding well to conservative management. I am going to give her a full diet. She is not symptomatic at the time of examination. She is adamant that she will not go to the operating room at this time. I have recommended a that she visit her platemaker letting him know that she sheath may end up in the emergency/operating room over the next few weeks or months. In that way any pending cardiac problems per could be addressed. The she is going to come see me next week in my office, so we can sit down once again at [facility] and she can bring a family member so that we could discuss her pathophysiology, the possible remedies, operations, and their potential complications. She is very agreeable to this and looks forward to meeting me next week. I will talk to her hospitalist and reviewed this with him. Anticipate discharge later today.
[2019-09-02] MEDS ORDERED: Levofloxacin 250mg IV 250 MG/50 ML BAG IV SCH (21:00)
--- NOTE | 2019-09-02 23:27 | P.PN ---
Subjective Date of Service: 09/02/19 Subjective: Improving (Patient looks to be doing well. However, labs is pending and surgery evaluation pending.) Review of Systems 10-point ROS is otherwise unremarkable Physical Examination - Vital Signs Temperature: 99 F Blood Pressure: 147/75 Pulse: 72 Respirations: 20 Pulse Ox (%): 95 - Physical Exam General: Alert, In no apparent distress, Oriented x3 Cardiovascular: Regular rate/rhythm, Normal S1 S2, Systolic murmur Gastrointestinal: Normal bowel sounds, Soft and benign, Non-distended, No rebound, No guarding, Tenderness - Studies Medications List Reviewed: Yes Assessment & Plan - Problems (Diagnosis) (1) Right upper quadrant abdominal pain Status: Acute (2) Acute cholecystitis Status: Acute - Plan Plan: 1. Continue with IV antibiotics 2. Pain medication as tolerated 3. Advance diet as tolerated 4. Discuss with surgery further options for patient's care 5. Repeat labs pending. 6. GI DVT prophylaxis Discharge Plan: Home Plan to discharge in: 24 Hours - Advance Directives Does patient have a Living Will: No Does patient have a Durable POA for Healthcare: No - Code Status/Comfort Care Code Status: Full Code Critical Care: No Time Spent Managing PTS Care (In Minutes): 25
== END 2019-09-02 16:00 | disposition home or self-care (01) ==
LOC: ER 15:32 → INTOOBSV 20:49 → ERHOLD 20:49 → 4TH 09-02 09:04
PROVIDERS: ADMIT Hospitalist; ATTEND Hospitalist
DX: K80.12 Calculus of gallbladder with acute and chronic cholecystitis without obstruction (principal); I10 Essential (primary) hypertension; E78.00 Pure hypercholesterolemia, unspecified; R06.02 Shortness of breath; R50.9 Fever, unspecified; Z20.828 Contact with and (suspected) exposure to other viral communicable diseases
CPT/HCPCS: 96365; 96367; 96361; 96368; 93005; 87040 ×2; 87088; 85025 ×3; 80048 ×2; 36415; 83735; 87205 ×3; 85610 ×3; 80061; 80076; 83605 ×3; 85730 ×2; 87077 ×2; 87186 ×2; 84484; 83690; 80053; 84145 ×2; 83880; 71275; 74177; 71045; 76705; 99285; Q9967; J2543; J0696; J7050; J7030 ×3; G0378 ×2; 81003; 81015; 87086; U0002

== ENCOUNTER 2019-09-24 10:02 | Observation (INO) | payer OTHER ==
[2019-09-24] MEDS ORDERED: Ringers Lactate 1,000 ML IV ONE (10:46)
[2019-09-24] MEDS ORDERED: CEFOXITIN/SWI 1gm 1 GM/10 ML SYR ONE (10:47)
[2019-09-24] MEDS: POTASSIUM CL SA 10 MEQ TAB PO ONE ×2 (11:13→17:52)
--- NOTE | 2019-09-24 11:35 | P.HP ---
Date of Service: 09/24/19 PC: This 78-year-old female presents for laparoscopic cholecystectomy with intraoperative cholangiogram. HPC: Patient had been in the hospital recently. She had acute cholecystitis at the time. She was treated with antibiotics. During the interim time. After she was discharged, she was seen by our boarder steam and has received cardiac clearance. She presents now because she starting in her pain back. PMH: Hypertension PSHx: Tubal ligation SOC: No known allergies, takes atenolol, simvastatin, and losartan SYS REVIEW: No cough, wheeze, shortness of breath. No chest pain or palpitations. Has some frequency and chronic dysuria with occasional incontinence. Bowel have a normal. O/E awake alert comfortable vital signs are stable HEENT: Not jaundiced Chest: Chest movement equal bilaterally ABD: Mild right upper quadrant tenderness LOCO: Intact DATA: Has documented gallstones IMPRESSION: Cholelithiasis with biliary colic PLAN: I will take her today for laparoscopic possible open cholecystectomy. The risks of this procedure have been discussed. The possibility of bleeding, infection, injury to bile ducts blood vessels intestines has been described. The possible need for an open and/or further surgeries and procedures was discussed. I have outlined the surgery with both the patient and her daughters. They understand wants to proceed.
[2019-09-24] MEDS ORDERED: ROCURONIUM 50 MG/5 ML VIAL IV ONE ×2 (12:04→13:38)
[2019-09-24] MEDS ORDERED: propofoL 200 MG/20 ML VIAL IV ONE (12:04)
[2019-09-24] MEDS ORDERED: FENTANYL CITR 100 MCG/2 ML ONE ×3 (12:04→14:05)
[2019-09-24] MEDS ORDERED: LIDOCAINE 1% MPF 5 ML VIAL ONE (12:05)
[2019-09-24] MEDS ORDERED: EPHEDRINE SULF 50 MG/ML VIAL ONE (12:17)
[2019-09-24] MEDS ORDERED: NS 0.9% VIAL 10 ML ONE (12:17)
[2019-09-24] MEDS ORDERED: dexAMETHasone 10 MG/ML VIAL ONE (12:53)
[2019-09-24] MEDS ORDERED: KETOROLAC 30 MG/ML INJ ONE (12:53)
[2019-09-24] MEDS ORDERED: ONDANSETRON 4 MG/2 ML VIAL ONE (13:38)
[2019-09-24] MEDS ORDERED: NA CHLORIDE 0.9% 1,000 ML ONE (13:40)
[2019-09-24] MEDS ORDERED: HYDRALAZINE HCL 20 MG/ML VIAL ONE (14:37)
[2019-09-24] MEDS ORDERED: GLYCOPYRROLATE 0.2 MG/ML SYR ONE ×2 (14:40→14:59)
[2019-09-24] MEDS ORDERED: NEOSTIGMINE 1 MG/ML -5 ML ONE (14:57)
[2019-09-24] MEDS ORDERED: ONDANSETRON 4 MG/2 ML VIAL IV PRN (15:07)
--- NOTE | 2019-09-24 15:28 | P.OP ---
Preoperative diagnosis: Cholecystitis with cholelithiasis Postoperative diagnosis: Chronic cholecystitis with cholelithiasis Primary procedure: Attempted laparoscopy Secondary procedure: Open cholecystectomy Anesthesia: General Estimated blood loss: Less than 20 cc Specimen: 1 large gallbladder and contents Findings: Large chronically inflamed thickened gallbladder, dense intra-abdomi nal adh Operative Technique: The patient brought the operating room and placed supine on the table. After the induction of adequate general endotracheal anesthesia, there the abdomen was prepped with a DuraPrep solution, and she was draped in usual aseptic manner. A subumbilical incision was made. This brought down through the skin and subcutaneous tissue. The Visiport was now used to enter the peritoneal cavity. At this point were able to get through the fascia. We could see that we were inside the abdomen with or marked amount of omental adhesions in the area. We t ried to gently insufflate to see if re-expand the abdominal wall help with provide traction to allow us to safely enter with the scope. We were unable to perform this maneuver at the [facility]. Instead we chose an upper midline incision. This was made with the 11 blade. Once again the Visiport was used to get down into the intra-abdominal area. We had entered into the peritoneum but again we could not adequately created pneumoperitoneum despite being in the peritoneal cavity but 2 demanded adhesions the abdomen would not come out. We weight 1 further attempt to try to created pneumoperitoneum by coming to the left lateral side of the abdomen once again after entry into the peritoneum from the outside portion of the omentum adhesions in the area would not allow us to insufflate. At this point we decided to convert to an open procedure. A right upper quadrant skin incision was made. This was approximately 3 fingers below the intercostal margin. This brought down through the skin and subcutaneous tissue. Electrocautery was used to ensure adequate hemostasis. The rectus sheath was identified. It was opened anteriorly. The rectus muscle was now elevated and divided using electro cautery. The posterior sheath was elevated at this point sharply incised to what access to the peritoneal cavity. Using gentle sweeping motions we were able to dissect away the adhesions to the anterior abdominal wall. An opening for the full length of our incision. The the superior edge of the fascia was now grasped and elevated. We really take the adhesions down between the liver and the anterior abdominal wall. We could now see the liver and the adhesions between that and the colon itself. These were gently taken down using blunt sharp dissection. Having finally dissected the colon away were able to pack it with 2 lap pads. A hand was placed into the peritoneal cavity. The gallbladder itself was markedly thickened and adherent to the gallbladder itself. It was fairly difficult to make out the plane between the gallbladder and the liver itself. The hand was swept down towards the infundibulum of the gallbladder. We could see that there were no stones in this area. The gallbladder itself remained extremely tense hard and firm. I was concerned us is agree of the dissection that would be required. However were able to develop a plane between the fundus of the liver itself. This fracture extends and the gallbladder was taken down in a retrograde manner. Cystic artery was next identified early and assisted dissection and was able to be clipped and divided. The gallbladder was now freed from the surrounding structures until the gallbladder itself wound by very generous on the cystic duct. At this point, a right angle was placed across the cystic duct the cystic duct was transected and our specimen was handed off the field. On dealing with the cystic duct itself we were able to suture ligated with 2 0 silk. Having obtained a secure closure, the remaining stump was alert cauterized with electro cautery. The gallbladder bed itself appeared to be relatively tried. There were some small bleeding easily controlled with electro cautery. A 10. Hakan-López drain was placed into the gallbladder fossa and brought out through a separate stab wound incision. At this point the abdomen was irrigated with a copious amount of saline solution until the effluent was clear. The posterior sheath was now closed with a running suture of 2 0 nylon. The anterior was dealt with in a similar fashion. 0.25% Marcaine was infiltrated into the muscle into the sheath itself. Subcutaneous tissue was irrigated with a saline solution and the skin was loosely approximated with obinna. At the end of the procedure she was in a stable condition when sent to the recovery room. Needle sponge instrument count were correct. The skin incisions had been closed with obinna. This includes the laparoscopic attempted areas. Complications: None Drain(s): RA drain Transferred to: Recovery Room Condition: Good
[2019-09-24 16:22] LABS: Albumin 2.9 g/dL (3.4-5.0); Bilirubin Direct 0.2 mg/dL (0-0.2); Bilirubin Total 0.6 mg/dL (0.2-1.0); Protein, Total 6.9 g/dL (6.4-8.2)
[2019-09-24] MEDS ORDERED: CEFOXITIN/SWI 1gm 1 GM/10 ML SYR IVP SCH (17:00)
[2019-09-24 17:20] LABS: Absolute Lymphocytes (CBC) 0.9 K/uL (0.7-4.9); Basophils % 0.5 % (0-1.3); Lymphocytes % 6.6 % (15.3-44.8); MPV 9.5 fL (7.6-11.3); RBC Red Blood Cell Count 5.58 M/uL (3.86-4.86)
[2019-09-24] MEDS: Ringers Lactate 1,000 ML IV SCH (17:52)
[2019-09-24 18:08] LABS: Blood Morphology Comment NOT SEEN (NOT SEEN); Platelet Estimate DECR; Urine White Blood Cell Casts OK
[2019-09-24 18:35] VITALS: BMI 47.2
[2019-09-24] MEDS: HYDROCODONE/APAP 7.5/325 MG TAB PO PRN (18:59)
[2019-09-24] MEDS: CEFOXITIN/SWI 1gm 1 GM/10 ML SYR IVP SCH (21:39)
[2019-09-25] MEDS: CEFOXITIN/SWI 1gm 1 GM/10 ML SYR IVP SCH (03:16)
[2019-09-25] MEDS: Ringers Lactate 1,000 ML IV SCH ×3 (03:16→14:32)
[2019-09-25 06:34] LABS: Potassium 5.5 mmol/L (3.5-5.1)
[2019-09-25] MEDS: MORPHINE 4 MG/ML SYR IV PRN ×3 (10:01→20:33)
[2019-09-25] MEDS: HYDROCODONE/APAP 7.5/325 MG TAB PO PRN (13:54)
[2019-09-25] MEDS ORDERED: Ringers Lactate 1,000 ML IV SCH (14:57)
--- NOTE | 2019-09-25 15:00 | P.PN ---
Date of Service: 09/25/19 S: Patient is no complaints, says she feels very well. Tolerated her diet today. Pain appears to be well controlled on current regime. O: Clinically patient looks remarkably well very comfortable sitting in a chair vital signs are stable adequate urine output. White cell count mildly elevated made H&H are stable. Still has some bloody drainage in the RA drain. Incisions are clean. A: Surgically stable P: Will try and transition patient over to oral pain medication today. Will observe the RA drain 1 more day and check hemoglobin hematocrit. Anticipate discharge in the a.m..
[2019-09-26] MEDS: HYDROCODONE/APAP 7.5/325 MG TAB PO PRN ×2 (02:04→10:52)
[2019-09-26 06:10] LABS: Absolute Lymphocytes (CBC) 1.1 K/uL (0.7-4.9); Basophils % 0.3 % (0-1.3); Hematocrit 33.6 % (36.0-45.0); Lymphocytes % 9.8 % (15.3-44.8); MPV 8.8 fL (7.6-11.3); RBC Red Blood Cell Count 3.92 M/uL (3.86-4.86)
[2019-09-26 06:26] LABS: Potassium 4.4 mmol/L (3.5-5.1)
[2019-09-26 06:49] LABS: Blood Morphology Comment NOT SEEN (NOT SEEN); Platelet Estimate DECR
[2019-09-26 08:39] VITALS: O2SAT 98
[2019-09-26 12:05] VITALS: BP 133/58; TEMP 97.3
--- NOTE | 2019-09-26 13:24 | P.DS ---
Admission Date: 09/24/19 Discharge Date: 09/26/19 Disposition: ROUTINE DISCHARGE Discharge Condition: GOOD Vital Signs/Physical Exam: Temp Pulse Resp BP Pulse Ox 97.3 F 80 18 133/58 L 96 09/26/19 12:00 09/26/19 12:00 09/26/19 12:00 09/26/19 12:00 09/26/19 12:00 Gastrointestinal: Other (Abdomen is soft, minimal out through RA drain. Incision is clean.) Laboratory Data at Discharge: WBC 10.8 K/uL (4.3-10.9) D 09/26/19 05:49 Hgb 11.4 g/dL (12.0-15.0) L D 09/26/19 05:49 Hct 33.6 % (36.0-45.0) L D 09/26/19 05:49 Plt Count 121 K/uL (152-406) L 09/26/19 05:49 Sodium 136 mmol/L (136-145) 09/26/19 05:49 Potassium 4.4 mmol/L (3.5-5.1) 09/26/19 05:49 BUN 10 mg/dL (7-18) 09/26/19 05:49 Creatinine 0.83 mg/dL (0.55-1.3) 09/26/19 05:49 Glucose 119 mg/dL (74-106) H 09/26/19 05:49 Total Bilirubin 0.6 mg/dL (0.2-1.0) 09/24/19 15:36 AST 139 U/L (15-37) H 09/24/19 15:36 ALT 67 U/L (12-78) 09/24/19 15:36 Alkaline Phosphatase 84 U/L (45-117) 09/24/19 15:36 Kitty Home Medications: Atenolol [Tenormin] 1 tab PO DAILY 09/02/19 Simvastatin 20 mg PO BEDTIME 09/02/19 Valsartan/Hydrochlorothiazide [Valsartan-Hctz 160-12.5 mg Tab] 1 tab PO DAILY 09/02/19 Patient Discharge Instructions: Diet as tolerated, milk of magnesium p.r.n.. You may shower. Ambulated home. Continue incentive spirometry. See me on Sunday, call for appointment. Any questions or problems, go to the emergency room or contact me. Diet: Regular Activity: Ad landon Followup: Lev Fair MD [ACTIVE - CAN ADMIT] -
== END 2019-09-26 13:54 | disposition home or self-care (01) ==
LOC: OR 10:02 → 2ND 15:26
PROVIDERS: ADMIT Surgery; ATTEND Surgery
PROC: 0FT40ZZ Resection of Gallbladder, Open Approach (ICD-10-PCS; 2019-09-24)
PROC: 0FJ44ZZ Inspection of Gallbladder, Percutaneous Endoscopic Approach (ICD-10-PCS; principal; 2019-09-24 11:00)
DX: K80.12 Calculus of gallbladder with acute and chronic cholecystitis without obstruction (principal); K66.0 Peritoneal adhesions (postprocedural) (postinfection); I10 Essential (primary) hypertension; Z79.899 Other long term (current) drug therapy; Z20.828 Contact with and (suspected) exposure to other viral communicable diseases
CPT/HCPCS: 85025 ×2; 80048 ×2; 36415 ×2; 80076; 88304; 47600; U0002; J0360; J2704; J3010 ×3; J1100; J2710; J7120 ×4; J7030; J2405; G0379; G0378 ×4

== ENCOUNTER 2021-07-01 14:43 | Emergency (ER) | payer OTHER ==
--- OUTSIDE RECORDS SUMMARY | 2021-07-01 14:47 | XMS REPORT | Continuity of Care Document ---
:1940 Author Organization [facility] t Address [address] [place] [address] Dr. Godfrey [address] [place] [id number] Care Team Providers Name Role Phone Unavailable Unavailable Unavailable Problems This patient has no known problems. Allergies, Adverse Reactions, Alerts This patient has no known allergies or adverse reactions. Medications This patient has no known medications. Procedures This patient has no known procedures. Results Test Description Test Time Test Comments Results Result Comments Source SARS-COV2/RT-PCR ([facility]) 2019-09-02 13:47:00 Test Item Value Reference Range Interpretation Comme nts SARS-COV2/RT-PCR (test code = 6506084) Negative Not Detected, N egative, See external report for linked test SARS-COV-2 PERFORMING LAB (test code = [facility] [id number]) Negative results do not preclude SARS-CoV-2 infection and should not be used as the sole basis for patient management decisions. Negative results must be combined with clinical observations, patient history, and epidemiological information. A false negative result may occur if a specimen is improperly collected, transported or handled.The limit of detection for this assay is 250 copies/mL.This SARS CoV-2 test is a rapid, real-time RT-PCR test intended for the qualitative detection of nucleic acid from SARS-CoV-2 in a nasopharyngeal swab specimen collected from individuals suspected of COVID-19 by their healthcare provider.This test has not been Food and Drug Administration (FDA) cleared or approved and has been authorized by FDA under an Emergency Use Authorization (EUA). This EUA will be effective until the declaration that circumstances exist justifying the authorization of the emergency use of in vitro diagnostic tests for detection and/or diagnosis of COVID-19 is terminated under Section 564(b)(2) of the Act or the EUA is revoked under Section 564(g) of the Act.Fact Sheet for Healthcare Pro viders:https://www.cepheid.com/Documents/Xpert%20Xpress%20SARS%20CoV-2/Fact%20Sh eets/3023802%95CVPJ-IOB-6%20HEALTHCARE%20PROVIDERS%20FACT%20SHEET.pdfFact Sheet for Healthcare Patients:https://www.Medifocus.Hangtime/Documents/Xpert%20Xpress%20SARS%20CoV-2/Fact%20Sheets/3023801%20SARS-COV -2%20PATIENT%20FACT%20SHEET.pdfPerforming Laboratory:[facility] [place] [address]
--- NOTE | 2021-07-01 16:49 | RAD REPORT ---
EXAM DESCRIPTION: CT - Pelvis Wo Cont - 07/01/2021 4:29 pm CLINICAL HISTORY: Pelvis pain, stress fracture suspected, neg xray COMPARISON: Abdomen Pelvis W Contrast dated 09/01/2019; Abdomen Exam Limited dated 09/01/2019 FINDINGS: No pelvic or hip fractures identified. No dislocation. Degenerative changes are present in the lower spine and at the sacroiliac joints. This is advanced on the right side. Several calcified uterine fibroids are noted. Nodularity, some which is calcified involving the greater omentum. This w as present on the CT from 09/01/2019. Question endometrial thickening. IMPRESSION: No pelvic or hip fracture identified. A nondisplaced or incomplete hip fracture can some times be occult on CT imaging and MRI is needed to visualize. Omental nodularity which was present on the prior CT from 09/01/2019 is probably of little significanc e. Peritoneal carcinomatosis can have this appearance but the findings should have progressed over th e course of nearly 2 years. Endometrial fluid versus thickening. Nonemergent pelvic ultrasound can better evaluate.
--- NOTE | 2021-07-01 17:15 | RAD REPORT ---
EXAM DESCRIPTION: US - Extremity Venous Uni Ltd - 07/01/2021 4:55 pm CLINICAL HISTORY: Pain COMPARISON: None. TECHNIQUE: Real-time sonographic evaluation of the left lower extremity deep venous system was perfo rmed. FINDINGS: Normal compressibility, flow augmentation, phasic flow and spontaneous flow is identified in the left lower extremity deep venous system. No intraluminal filling defects seen. IMPRESSION: No DVT in the left lower extremity.
[2021-07-01] MEDS ORDERED: MORPHINE 4 MG/ML SYR ONE (17:56)
--- NOTE | 2021-07-01 18:28 | ER ---
Nurse's Notes [facility] Name: Negrita Shields Age: 80 yrs Sex: Female : 1940 Arrival Date: 07/01/2021 Time: 15:26 Bed 19 Private MD: Danny Abdul E Diagnosis: Left Hip Pain Presentation: 07/01 16:06 Chief complaint: Patient's son or daughter states: She has been having cramps and pains jb4 on her left hip and lower back. She was here yesterday and had x-rays and they said there was no broken bone. I am concerned she may have a blood clot. Coronavirus screen: At this time, the client does not indicate any symptoms associated with coronavirus-19. 16:06 Method Of Arrival: Wheelchair jb4 16:09 Ebola Screen: Patient negative for fever greater than or equal to 101.5 degrees iw Fahrenheit, and additional compatible Ebola Virus Disease symptoms Patient denies exposure to infectious person. Patient denies travel to an Ebola-affected area in the 21 days before illness onset. No symptoms or risks identified at this time. Initial Sepsis Screen: Does the patient meet any 2 criteria? No. Patient's initial sepsis screen is negative. Does the patient have a suspected source of infection? No. Patient's initial sepsis screen is negative. Risk Assessment: Do you want to hurt yourself or someone else? Patient reports no desire to harm self or others. Onset of symptoms was July 01, 2021. 16:09 Acuity: TAYLOR 3 iw Historical: - Allergies: 16:09 No Known Allergies; iw - PMHx: 16:09 High Cholesterol; Hypertension; iw Screenin:46 Abuse screen: Denies threats or abuse. Nutritional screening: No deficits noted. jb4 Tuberculosis screening: No symptoms or risk factors identified. Fall Risk None identified. Assessment: 16:10 General: Appears in no apparent distress. comfortable. Pain:. iw 16:30 Reassessment: daughter at nurses's station asking where her mother is , I advised iw daughter that she most likely went to radiology, daughter tried to walk back to dept I told her she needed a badge to go back , she stated I need to know where my mother is, I told her the patient went to radiology but I cannot leave triage to take her back there with her. I then left daughter at nurse's station to return to triage. 16:55 Reassessment: pt back in lobby with daughter ,LOGAN , sitting in wheelchair. iw 18:46 Reassessment: Patient appears in no apparent distress at this time. Patient and/or jb4 family updated on plan of care and expected duration. Pain level reassessed. Patient is alert, oriented x 3, equal unlabored respirations, skin warm/dry/pink. Vital Signs: 16:09 BP 183 / 90; Pulse 62; Resp 16; Temp 97.8; Pulse Ox 98% on R/A; iw ED Course: 15:26 Patient arrived in ED. am2 15:27 Danny Abdul MD is Private Physician. am2 15:35 [facility] Yin [facility] 15:35 Pardeep Man MD is Attending Physician. [facility] 16:09 Triage completed. iw 16:30 CT Pelvis wo Cont In Process Unspecified. EDMS 16:57 US Extremity Venous Unilateral Ltd In Process Unspecified. EDMS 18:23 Nathaniel Martini MD is Referral Physician. jmm 18:26 Robbie Ray MD is Referral Physician. jmm 18:26 Lee Bush MD is Referral Physician. [facility] 18:46 Patient has correct armband on for positive identification. Bed in low position. Call jb4 light in reach. Side rails up X 1. 18:46 No provider procedures requiring assistance completed. Patient did not have IV access jb4 during this emergency room visit. Administered Medications: 17:51 Drug: morphine 4 mg Route: IM; Site: left deltoid; iw 18:47 Follow up: Response: No adverse reaction jb4 Medication: 18:46 VIS not applicable for this client. jb4 Outcome: 18:27 Discharge ordered by MD. [facility] 18:46 Discharged to home via wheelchair, with family. [facility] 18:46 Condition: stable 18:46 Discharge instructions given to patient, Instructed on discharge instructions, follow up and referral plans. medication usage, Demonstrated understanding of instructions, follow-up care, medications, Prescriptions given X 1. 18:47 Patient left the ED. jb4 Signatures: Dispatcher [employer] EDMS Awais Yin PA PA Bryanna Yip RN RN Lev Arguello RN RN jb4 Letty Poe am2 Corrections: (The following items were deleted from the chart) 16:34 16:30 Reassessment: daughter at nurses's station asking where her mother is , I advised iw daughter that she most likely went to radiology, daughter tried to walk back to dept I told her she needed a badge to go back , she stated I need to know where my mother is, I told her radiology but I cannot leave triage to take her back there with her iw
--- NOTE | 2021-07-01 18:28 | EDPHYS ---
Physician Documentation [facility] Name: Negrita Shields Age: 80 yrs Sex: Female : 1940 Arrival Date: 07/01/2021 Time: 15:26 Bed 19 Private MD: Danny Abdul E ED Physician Pardeep Man HPI: 07/01 15:51 This 80 yrs old Black Female presents to ER via Wheelchair with complaints of Hip Pain, jmm muscle spasms. 15:51 The patient or guardian reports pain. Onset: The symptoms/episode began/occurred jmm gradually, 2 week(s) ago. Modifying factors: The symptoms are alleviated by nothing, the symptoms are aggravated by any movement. Is an 80-year-old female with history of hyperlipidemia and hypertension the presents emerged part with complaints of left lateral hip pain beginning approximately 2 weeks ago. Patient denies any known injury. Patient was evaluated by her PCP with negative x-rays. States having some pain after being prescribed pain medication. Advised by PCP to go to the ER for further evaluation.. Historical: - Allergies: 16:09 No Known Allergies; iw - PMHx: 16:09 High Cholesterol; Hypertension; iw ROS: 15:51 Constitutional: Negative for fever, chills, and weight loss, Cardiovascular: Negative jmm for chest pain, palpitations, and edema, Respiratory: Negative for shortness of breath, cough, wheezing, and pleuritic chest pain. 15:51 MS/extremity: Positive for pain. 15:51 All other systems are negative. Exam: 15:51 Constitutional: This is a well developed, well nourished patient who is awake, alert, jmm and in no acute distress. Head/Face: atraumatic. Eyes: EOMI, no conjunctival erythema appreciated ENT: Moist Mucus Membranes Neck: Trachea midline, Supple Chest/axilla: Normal chest wall appearance and motion. Cardiovascular: Regular rate and rhythm. No edema appreciated Respiratory: Normal respirations, no respiratory distress appreciated Abdomen/GI: Non distended, soft Back: Normal ROM Skin: General appearance color normal 15:51 Musculoskeletal/extremity: Left lateral femur proximal tender to palpation, reproduces symptoms.. 15:51 Skin: Appearance: Color: normal in color. 15:51 Neuro: Orientation: is normal, Mentation: is normal, Memory: is normal. 15:51 Psych: Behavior/mood is pleasant, cooperative. Vital Signs: 16:09 BP 183 / 90; Pulse 62; Resp 16; Temp 97.8; Pulse Ox 98% on R/A; iw MDM: 15:54 Patient medically screened. [facility] 18:22 Data reviewed: vital signs, nurses notes. Counseling: I had a detailed discussion with meri the patient and/or guardian regarding: the historical points, exam findings, and any diagnostic results supporting the discharge/admit diagnosis, radiology results, the need for outpatient follow up, to return to the emergency department if symptoms worsen or persist or if there are any questions or concerns that arise at home. ED course: X-ray and ultrasound negative. Pain is decreased with IM injection. Will prescribe muscle relaxers. Patient advised to follow-up with orthopedics for further evaluation otherwise given strict return precautions. Patient and family understood and agrees plan of care.. 07/01 15:57 Order name: US Extremity Venous Unilateral Ltd; Complete Time: 17:56 [facility] 07/01 15:58 Order name: CT Pelvis wo Cont; Complete Time: 16:51 [facility] Administered Medications: 17:51 Drug: morphine 4 mg Route: IM; Site: left deltoid; iw 18:47 Follow up: Response: No adverse reaction jb4 Disposition Summary: 07/01/21 18:27 Discharge Ordered Location: Home [facility] Condition: Stable [facility] Diagnosis - Left Hip Pain [facility] Followup: [facility] - With: Nathaniel Martini MD - When: 2 - 3 days - Reason: Recheck today's complaints, Continuance of care, Re-evaluation by your physician Followup: [facility] - With: Robbie Ray MD - When: 2 - 3 days - Reason: Recheck today's complaints, Continuance of care, Re-evaluation by your physician Followup: [facility] - With: Lee Bush MD - When: 2 - 3 days - Reason: Recheck today's complaints, Continuance of care, Re-evaluation by your physician Discharge Instructions: - Discharge Summary Sheet [facility] - Hip Bursitis [facility] Forms: - Medication Reconciliation Form [facility] - Thank You Letter [facility] - Antibiotic Education [facility] - Prescription Opioid Use [facility] Prescriptions: - orphenadrine citrate 100 mg Oral Tablet Sustained Release - take 1 tablet by ORAL route 2 times per day As needed; 20 tablet; Refills: 0, jmm Product Selection Permitted Addendum: 07/03/2021 23:54 Co-signature as Attending Physician, Pardeep Man MD. r n Signatures: Dispatcher [employer] Awais Torres PA PA jmm Williams, Irene, Pardeep Howard RN, MD MD rn Bryson, James RN jb4
[2021-07-01 19:07] VITALS: BP 183/90; TEMP 97.8; O2SAT 98
== END 2021-07-01 18:47 | disposition home or self-care (01) ==
LOC: ER 14:43
DX: M25.552 Pain in left hip (principal); I10 Essential (primary) hypertension; E78.00 Pure hypercholesterolemia, unspecified
CPT/HCPCS: 72192; 93971; 96372; 99283

== ENCOUNTER 2024-01-31 13:20 | Emergency (ER) | payer OTHER ==
--- OUTSIDE RECORDS SUMMARY | 2024-01-31 13:24 | XMS REPORT | Continuity of Care Document ---
Author Name Unknown Address [address] [facility] [address] th[address] Address [address] [facility] [address] [place] [address] Care Team Providers Care Demonstrator Sewing Techniques Name Role Phone Geronimo Moyer A Attending Clinician Unavailable Geronimo Moyer A Admitting Clinician Unavailable Encounters Start Date/Time End Date/Time Encounter Type Admission Type Attending Clinicians [facility] Facility Care Department Encounter ID Source 2023-04-30 14:45:00 Outpatient Geronimo Moyer [facility] [id number] [facility] 2022-09-19 10:18:01 Outpatient Geronimo Moyer [facility] [id number] [facility]
[2024-01-31] MEDS ORDERED: TRAMADOL HCL 50 MG TAB ONE (15:15)
[2024-01-31] MEDS ORDERED: ACETAMINOPHEN 500 MG TAB ONE (15:15)
--- NOTE | 2024-01-31 16:09 | RAD REPORT ---
EXAMINATION: XR RIGHT KNEE CLINICAL INDICATION: Female, 83 years old. Pain;Swelling TECHNIQUE: Multiple views of the right knee were obtained. COMPARISON: No prior exam. FINDINGS: Severe osteoarthritis involves the medial compartment with [id number]. No fracture eviden t. Large posteriorly located bony osteophyte or osteochondroma. Small to moderate suprapatellar joint effusion.
--- NOTE | 2024-01-31 16:19 | RAD REPORT ---
EXAMINATION: US RIGHT LOWER EXTREMITY VENOUS DOPPLER CLINICAL INDICATION: PAIN RIGHT TECHNIQUE: Complete bilateral duplex sonography of the RIGHT lower extremity veins was performed. The examination included compression for vein patency, color Doppler imaging and flow augmentation in response to distal compression of the distal external iliac, common femoral, femoral, popliteal, tibi al, and great and small saphenous veins. COMPARISON: No prior exam. FINDINGS: Duplex sonography testing of the veins of the RIGHT lower extremity was performed. Color flow imaging shows all veins to be compressible with [id number] color filling. Pulsatile and phasic flow is present within all lower extremity deep and superficial veins examined. IMPRESSION: There is no deep vein or superficial vein thrombosis.
--- NOTE | 2024-01-31 17:29 | ER ---
Nurse's Notes [facility] Name: Negrita Shields Age: 83 yrs Sex: Female : 1940 Arrival Date: 01/31/2024 Time: 13:20 Bed 23 Private MD: Diagnosis: Effusion, right knee;Pain in right knee Presentation: 01/30 14:19 Chief complaint: Patient states: RIGHT KNEE PAIN AND SWELLING ONSET LAST NIGHT. PT cm10 DENIES TRAUMA OR INJURY. Coronavirus screen: Client denies travel out of the [place] in the last 14 days. Ebola Screen: Patient denies travel to an Ebola-affected area in the 21 days before illness onset. No symptoms or risks identified at this time. Initial Sepsis Screen: Does the patient meet any 2 criteria? No. Patient's initial sepsis screen is negative. Does the patient have a suspected source of infection? No. Patient's initial sepsis screen is negative. Risk Assessment: Do you want to hurt yourself or someone else? Patient reports no desire to harm self or others. Onset of symptoms was January 30, 2024. 14:19 Method Of Arrival: Wheelchair cm10 14:19 Acuity: TAYLOR 4 cm10 Triage Assessment: 14:21 General: Appears in no apparent distress. uncomfortable, Behavior is calm, cooperative. cm10 Neuro: No deficits noted. Level of Consciousness is awake, alert, obeys commands, Oriented to person, place, time, situation, Appropriate for age. Respiratory: No deficits noted. Airway is patent Respiratory effort is even, unlabored, Respiratory pattern is regular, symmetrical. Historical: - Allergies: 14:21 No Known Allergies; cm10 - PMHx: 14:21 High Cholesterol; Hypertension; cm10 - Immunization history:: Adult Immunizations up to date. - Infectious Disease History:: Denies. - Social history:: Smoking status: Patient denies any tobacco usage or history of. Screenin:06 [facility] ED Fall Risk Assessment (Adult) History of falling in the last 3 months, jb4 including since admission No falls in past 3 months (0 pts) Confusion or Disorientation No (0 pts) Intoxicated or Sedated No (0 pts) Impaired Gait Yes (1 pt) Mobility Assist Device Used No (0 pt) Altered Elimination No (0 pt) Score/Fall Risk Level 0 - 2 = Low Risk Oriented to surroundings, Maintained a safe environment. Abuse screen: Denies threats or abuse. Nutritional screening: No deficits noted. Tuberculosis screening: No symptoms or risk factors identified. Assessment: 16:06 General: Appears in no apparent distress. comfortable, Behavior is calm, cooperative, jb4 appropriate for age. Pain: Complains of pain in right knee Pain does not radiate. Pain currently is 9 out of 10 on a pain scale. Neuro: Level of Consciousness is awake, alert, obeys commands, Oriented to person, place, time, situation. Cardiovascular: Patient's skin is warm and dry. Respiratory: Airway is patent Respiratory effort is even, unlabored, Respiratory pattern is regular, symmetrical. Derm: Skin is intact, Skin is dry, Skin is normal, Skin temperature is warm. Musculoskeletal: Circulation, motion, and sensation intact. Range of motion: intact in all extremities. Vital Signs: 14:19 BP 173 / 79; Pulse 71; Resp 16; Temp 97.7(TE); Pulse Ox 100% on R/A; Height 5 ft. 0 in. cm10 ; Pain 9/10; 14:19 Pain Scale: Adult cm10 ED Course: 13:23 Patient arrived in ED. mr 14:01 Warren Rolle PA is PHCP. cp 14:01 Patience Dias MD is Attending Physician. cp 14:21 Triage completed. cm10 14:21 Arm band placed on right wrist. Patient placed in waiting room. cm10 15:19 Lev Macedo, RN is Primary Nurse. jb4 15:26 XRAY Knee RIGHT 3 view In Process Unspecified. EDMS 15:55 US Extremity Venous Unilateral Ltd In Process Unspecified. EDMS 16:06 Patient has correct armband on for positive identification. Bed in low position. Call jb4 light in reach. Side rails up X 1. Provided Education on: plan of care. 17:37 No provider procedures requiring assistance completed. Patient did not have IV access iw during this emergency room visit. Administered Medications: 15:19 Not Given (Patient Refused): [id number] mg PO once jb4 15:19 Drug: Acetaminophen PO 1000 mg PO once Route: PO; jb4 Medication: 16:06 VIS not applicable for this client. jb4 Outcome: 17:28 Discharge ordered by . cp 17:37 Discharged to home via wheelchair, iw 17:37 Condition: good 17:37 Discharge instructions given to patient, family, Instructed on discharge instructions, follow up and referral plans. medication usage, Demonstrated understanding of instructions, follow-up care, medications, Prescriptions given X 1, 17:38 Patient left the ED. iw Signatures: Dispatcher [employer] EDMS RomeroKierra, Reg Reg mr Bryanna Conner, RN RN iw Warren Rolle PA PA cp Bryson, James, RN RN jb4 Shantal Higginbotham RN RN cm10
--- NOTE | 2024-01-31 17:30 | EDPHYS ---
Physician Documentation [facility] Name: Negrita Shields Age: 83 yrs Sex: Female : 1940 Arrival Date: 01/31/2024 Time: 13:20 Bed 23 Private MD: ED Physician Patience Dias HPI: 01/30 15:00 This 83 yrs old Black Female presents to ER via Wheelchair with complaints of Knee cp Pain, Knee swelling. 15:00 The patient presents with pain, that is acute, swelling, tenderness. The complaints cp affect the right knee. Context: resulted from an unknown cause, the patient can partially bear weight, the patient is able to ambulate, with moderate difficulty, Problem is a result from a previous injury: No. Onset: The symptoms/episode began/occurred last night, and became worse today. Associated signs and symptoms: Pertinent negatives fever, warmth, known injury. Historical: - Allergies: 14:21 No Known Allergies; cm10 - PMHx: 14:21 High Cholesterol; Hypertension; cm10 - Immunization history:: Adult Immunizations up to date. - Infectious Disease History:: Denies. - Social history:: Smoking status: Patient denies any tobacco usage or history of. ROS: 15:05 MS/extremity: Positive for pain, swelling, tenderness, of the right knee, Negative for cp injury or acute deformity, decreased range of motion, paresthesias, 15:05 Constitutional: Negative for body aches, chills, fever, cp 15:05 Neck: Negative for pain with movement, pain at rest, 15:05 Respiratory: Negative for shortness of breath, wheezing, 15:05 Back: Negative for pain at rest, pain with movement, 15:05 All other systems are negative, Exam: 15:10 Constitutional: The patient appears in no acute distress, alert, awake, non-toxic, well cp developed, well nourished, uncomfortable, 15:10 Head/Face: Normocephalic, atraumatic. cp 15:10 Chest/axilla: Inspection: normal, 15:10 Cardiovascular: Rate: normal, 15:10 Respiratory: the patient does not display signs of respiratory distress, Respirations: normal, no use of accessory muscles, no retractions, labored breathing, is not present, 15:10 Back: pain, is absent, ROM is normal, 15:10 Musculoskeletal/extremity: Extremities: noted in the right knee: pain, swelling, tenderness, ROM: limited passive range of motion due to pain, in the right knee, Perfusion: the extremity is normally perfused throughout, the right leg Sensation intact. 15:10 Skin: cellulitis, is not appreciated, no rash present. Vital Signs: 14:19 BP 173 / 79; Pulse 71; Resp 16; Temp 97.7(TE); Pulse Ox 100% on R/A; Height 5 ft. 0 in. cm10 ; Pain 9/10; 14:19 Pain Scale: Adult cm10 MDM: 14:25 Medical Screening Exam initiated cp 15:00 Differential diagnosis: dislocation, closed fracture, tendonitis, sprain, DVT. cp 17:27 Data reviewed: vital signs, nurses notes, radiologic studies, plain films, ultrasound, cp and as a result, I will discharge patient. 17:27 Care significantly affected by the following chronic conditions: Hypertension. cp Counseling: I had a detailed discussion with the patient and/or guardian regarding the historical points, exam findings, and any diagnostic results supporting the discharge/admit diagnosis, radiology results, the need for outpatient follow up, a orthopedic surgeon, to return to the emergency department if symptoms worsen or persist or if there are any questions or concerns that arise at home. Response to treatment: the patient's symptoms have mildly improved after treatment, and as a result, I will discharge patient. 01/30 14:59 Order name: XRAY Knee RIGHT 3 view; Complete Time: 17:20 cp 01/30 17:20 Interpretation: Report reviewed. cp 01/30 14:59 Order name: US Extremity Venous Unilateral Ltd; Complete Time: 17:20 cp 01/30 17:20 Interpretation: Report reviewed. cp Administered Medications: 15:19 Not Given (Patient Refused): [id number] mg PO once jb4 15:19 Drug: Acetaminophen PO 1000 mg PO once Route: PO; jb4 Disposition: 01/31 17:09 Chart complete. cp Disposition Summary: 01/31/24 17:28 Discharge Ordered Notes: Location: Home cp Problem: new cp Symptoms: have improved cp Condition: Stable cp Diagnosis - Effusion, right knee cp - Pain in right knee cp Followup: cp - With: Private Physician - When: 5 - 6 days - Reason: Recheck today's complaints Discharge Instructions: - Discharge Summary Sheet cp - Joint Pain cp - How to Use a Knee Brace cp - Knee Effusion cp Forms: - Medication Reconciliation Form cp - Antibiotic Education cp - Prescription Opioid Use cp - Patient Portal Instructions cp - Leadership Thank You Letter cp Prescriptions: - Celebrex 200 mg Oral capsule - take 1 capsule ORAL route every 12 hours As needed take with food; 30 capsule; cp Refills: 0, Product Selection Permitted Addendum: 23:54 Co-signature as Attending Physician, Patience Dias MD I reviewed the patient's care s d2 provided by the Advanced Practice Provider and agree with the diagnosis and treatment plan. Signatures: Dispatcher [employer] EDVA Warren Rolle PA PA cp Bryson, James, RN RN jb4 Patience Dias MD MD sd2 Shantal Higginbotham RN RN cm10
[2024-01-31 17:43] VITALS: BP 173/79; TEMP 97.7; O2SAT 100
== END 2024-01-31 17:38 | disposition home or self-care (01) ==
LOC: ER 13:20
DX: M25.461 Effusion, right knee (principal)
CPT/HCPCS: 93971; 99283

== ENCOUNTER 2024-06-29 10:13 | Emergency (ER) | payer OTHER ==
--- OUTSIDE RECORDS SUMMARY | 2024-06-29 10:16 | XMS REPORT | Continuity of Care Document ---
Author Name Unknown Address [address] [place], [place] [id number] [facility] Address [address] [facility] [address] [place] [address] Care Team Providers Care Legal Records Clerk Name Role Phone Geronimo Moyer Attending Clinician Unavailable Geronimo Moyer A Admitting Clinician Unavailable Encounters Start Date/Time End Date/Time Encounter Type Admission Type Attending Clinicians [facility] Facility Care Department Encounter ID Source 2023-04-30 14:45:00 Outpatient Geronimo Moyer [facility] [id number] [facility] 2022-09-19 10:18:01 Outpatient Geronimo Moyer [facility] [id number] [facility]
--- NOTE | 2024-06-29 13:32 | RAD REPORT ---
EXAM: CT brain without contrast HISTORY: fall COMPARISON: None TECHNIQUE: Multiple contiguous axial images were obtained and a CT of the brain without contrast. Sag ittal and coronal reformats were performed. FINDINGS: No evidence of hydrocephalus, intracranial hemorrhage, or extra-axial fluid collection. Incidentally noted partially empty sella. No evidence of acute territorial infarct. Confluent moderate periventricular and deep white matter nonspecific hypodensities, most suggestive of chronic microvascular ischemic changes. The calvarium is intact. Single nonexpansile lucent lesion along the left frontal calvarium, nonspeci fic, but may represent an atypical hemangioma. The visualized paranasal sinuses and mastoid air cells are essentially clear. IMPRESSION: No evidence of acute intracranial abnormality. EXAM: CT of the cervical spine without contrast HISTORY: fall COMPARISON: None TECHNIQUE: Multiple contiguous axial images were obtained in a CT of the cervical spine without contr ast. Sagittal and coronal reformats were performed. FINDINGS: The vertebral bodies demonstrate normal height and alignment. No evidence of acute fracture or subluxation.. No degenerative changes are present. No prevertebral soft tissue swelling is seen. The posterior facets are well aligned. Normal alignment of the skull base with the cervical spine is seen. The lung apices are unremarkable. IMPRESSION: No evidence of acute osseous abnormality of the cervical spine.
[2024-06-29 13:48] LABS: Absolute Eosinophils 0.1 K/uL (0-0.5); Absolute Lymphocytes (CBC) 1.2 K/uL (0.7-4.9); Absolute Monocytes 0.6 K/uL (0.1-1.3); Absolute Neutrophil 2.2 K/uL (1.8-8.0); Basophils % 1.1 % (0-1.3); Eosinophils % 1.9 % (0-4.4); Hematocrit 45.5 % (36.0-45.0); Lymphocytes % 28.7 % (15.3-44.8); MCHC 32.9 g/dL (32.0-36.0); MCV 88.1 fL (80-100); Monocytes % 15.3 % (3.3-12.3); Platelets 168 thou/uL (152-406); RBC Red Blood Cell Count 5.16 M/uL (3.86-4.86); Red Cell Distribution Width 15.3 % (12.1-15.2)
[2024-06-29 14:00] LABS: Albumin 3.7 g/dL (3.4-5.0); Anion Gap 9.9 mEq/L (5.0-15.0); Bilirubin Total 0.5 mg/dL (0.2-1.0); Globulin 3.8 g/dL (2.3-3.5); Potassium 3.9 mEq/L (3.5-5.1); Protein, Total 7.5 g/dL (6.4-8.2)
[2024-06-29 14:12] LABS: Troponin High Sensitivity 11.7 pg/mL (<58.9)
--- NOTE | 2024-06-29 14:24 | RAD REPORT ---
EXAMINATION: ONE VIEW CHEST XR CLINICAL INDICATION: Female, 83 years old.,FAll TECHNIQUE: Frontal chest projection is submitted. Examination is limited by patient positioning and t echnique. COMPARISON: 09/01/2019 FINDINGS: The lungs are grossly clear although suboptimal inspiratory effort somewhat limits evaluation. No pn eumothorax or sizable effusion. The heart is normal in size. Mediastinal contours are unremarkable. IMPRESSION: No acute intrathoracic abnormalities.
--- NOTE | 2024-06-29 14:32 | RAD REPORT ---
EXAMINATION: XR Elbow Left 3 View CLINICAL INDICATION: Female, 83 years old. Fall;Pain TECHNIQUE: 3 view radiographs of the left elbow were obtained. COMPARISON: No prior exam. FINDINGS: No evidence of fracture or dislocation. Normal alignment. No joint effusion. No evidence of arthropathy. No suspicious focal bone lesion. Soft tissue swelling and irregularity along the volar aspect of the upper arm and antecubital fossa. IMPRESSION: No acute or significant osseous abnormalities. Soft tissue abnormalities as above.
--- NOTE | 2024-06-29 14:33 | RAD REPORT ---
EXAM: XR Knee Left 3 View HISTORY: [facility] MAIN Fall Bed Name: IW2 COMPARISON: None TECHNIQUE: 3 views of the left knee were obtained. FINDINGS: No knee effusion is seen. There is no evidence of acute fracture or dislocation. Advanced tricompartmental degenerative changes with joint space loss most pronounced along the lateral weightbearing compartment. Pronounced soft tissue swelling about the knee. IMPRESSION: No evidence of acute osseous abnormality. Pronounced soft tissue swelling. Advanced tric ompartmental osteoarthritic changes.
--- NOTE | 2024-06-29 14:34 | RAD REPORT ---
EXAM: XR Knee Right 3 View HISTORY: [facility] MAIN Fall Bed Name: IW2 COMPARISON: 01/31/2024 TECHNIQUE: 3 views of the right knee were obtained. FINDINGS: No knee effusion is seen. There is no evidence of acute fracture or dislocation. Advanced degenerative changes most pronounced along the medial weightbearing compartment with osseous remodeling of the tibial plateau with downsloping. No soft tissue swelling or other soft tissue abnor mality is present. IMPRESSION: No evidence of acute osseous abnormality. Stable advanced tricompartmental osteoarthriti c changes as above.
--- NOTE | 2024-06-29 14:48 | ER ---
Nurse's Notes [facility] Name: Negrita Shields Age: 83 yrs Sex: Female : 1940 Arrival Date: 06/29/2024 Time: 10:13 Bed 13 Private MD: Diagnosis: Fall on same level, unspecified Presentation: 06/29 10:32 Chief complaint: Parent and/or Guardian states: 3 falls in the past week with the last me1 being this morning. Patient denies hitting her head, no blood thinners. Has chronic pain to bilateral knees but pain is worse to both since falling. Pain 10/10 to knees. Coronavirus screen: Vaccine status: Patient reports receiving the 2nd dose of the covid vaccine. Ebola Screen: No symptoms or risks identified at this time. Initial Sepsis Screen: Does the patient meet any 2 criteria? No. Patient's initial sepsis screen is negative. Does the patient have a suspected source of infection? No. Patient's initial sepsis screen is negative. Risk Assessment: Do you want to hurt yourself or someone else? Patient reports no desire to harm self or others. Onset of symptoms was June 22, 2024. 10:32 Method Of Arrival: Wheelchair me1 10:32 Acuity: TAYLOR 3 me1 Historical: - Allergies: 10:36 No Known Allergies; me1 - PMHx: 10:36 High Cholesterol; Hypertension; me1 - PSHx: 10:36 None; me1 - Immunization history:: Adult Immunizations up to date. - Infectious Disease History:: Denies. - Social history:: Smoking status: Patient/guardian denies using tobacco, but has a distant history of tobacco abuse. Screenin:36 [facility] ED Fall Risk Assessment (Adult) History of falling in the last 3 months, kc6 including since admission Yes- single mechanical fall (1 pt) Confusion or Disorientation No (0 pts) Intoxicated or Sedated No (0 pts) Impaired Gait No (0 pts) Mobility Assist Device Used Yes (1 pt) Altered Elimination No (0 pt) Score/Fall Risk Level 3 or more points = High Risk Oriented to surroundings, Maintained a safe environment. Abuse screen: Denies threats or abuse. Denies injuries from another. Nutritional screening: No deficits noted. Tuberculosis screening: No symptoms or risk factors identified. Assessment: 13:09 General: Appears in no apparent distress. Behavior is calm, cooperative. Pain: kj2 Complains of pain in right knee and left knee Pain currently is 8 out of 10 on a pain scale. Neuro: Level of Consciousness is awake, obeys commands, Oriented to person, place, time, situation. Cardiovascular: Patient's skin is warm and dry. Respiratory: Airway is patent Respiratory effort is unlabored. GI: No signs and/or symptoms were reported involving the gastrointestinal system. : No signs and/or symptoms were reported regarding the genitourinary system. 14:14 Reassessment: Patient appears in no apparent distress at this time. Patient and/or kj2 family updated on plan of care and expected duration. Pain level reassessed. Patient is alert, oriented x 3, equal unlabored respirations, skin warm/dry/pink. Vital Signs: 10:32 BP 189 / 92; Pulse 71; Resp 18; Temp 98.4; Pulse Ox 97% ; Height 5 ft. 0 in. ; Pain me1 10/10; 13:36 BP 168 / 94; Pulse 69; Resp 20 S; Pulse Ox 100% on R/A; kc6 14:14 BP 178 / 71; Pulse 66; Resp 20; Pulse Ox 100% on R/A; kj2 10:32 Pain Scale: Adult me1 ED Course: 10:16 Patient arrived in ED. im 10:19 Rafael Mosqueda, GROCERY MANAGER-C is PHCP. dr5 10:19 Warren Clay MD is Attending Physician. dr5 10:36 Triage completed. me1 10:36 Arm band placed on Patient placed in waiting room. me1 11:56 Elbow Left 3 View XRAY In Process Unspecified. EDMS 11:56 Knee Right 3 View XRAY In Process Unspecified. EDMS 11:56 Knee Left 3 View XRAY In Process Unspecified. EDMS 11:56 Chest Single View XRAY In Process Unspecified. EDMS 12:13 CT Head C Spine In Process Unspecified. EDMS 13:08 Sonya Rogers, RN is Primary Nurse. kj2 13:19 Missed attempt(s): 22 gauge in right hand. kc6 13:36 Patient has correct armband on for positive identification. Bed in low position. Call kc6 light in reach. Side rails up X2. Adult w/ patient. Pulse ox on. NIBP on. Door closed. Noise minimized. Lights dimmed. Warm blanket given. Pillow given. Verbal reassurance given. 13:36 Initial lab(s) drawn, by me, sent to lab. Inserted saline lock: 22 gauge in left kc6 forearm, using aseptic technique. Blood collected. Flushed with 10 mL NS. Patient maintains SpO2 saturation greater than 95% on room air. Administered Medications: 10:23 CANCELLED (Inappropriate at this time): lidocaine(1 %) 20 ml 20 ml Infiltration once; dr5 to bedside Outcome: 14:48 Discharge ordered by MD. dr5 15:04 Patient left the ED. hb Signatures: Dispatcher [employer] EDMS Katharina Flores RN RN hb Becca Mcnamara RN RN kc6 Eva Lopez Michelle RN RN me1 Sonya Rogers RN RN kj2 Rafael Mosqueda, GROCERY MANAGER-C GROCERY MANAGER-Cdr5
--- NOTE | 2024-06-29 14:49 | EDPHYS ---
Physician Documentation [facility] Name: Negrita Shields Age: 83 yrs Sex: Female : 1940 Arrival Date: 06/29/2024 Time: 10:13 Bed 13 Private MD: ED Physician Warren Clay HPI: 06/29 10:46 This 83 yrs old Black Female presents to ER via Wheelchair with complaints of Fall dr5 Injury. 10:46 Onset: The symptoms/episode began/occurred acutely. Patient is an 83-year-old female dr5 with history of hypertension and hyperlipidemia coming in with multiple falls over the last week. Patient reports that she is fallen a total of 3 times. Patient states that she thinks it is due the pain in her right knee that keeps giving out and causing her to fall. Patient denies hitting her head and denies being on any blood thinners.. Historical: - Allergies: 10:36 No Known Allergies; me1 - PMHx: 10:36 High Cholesterol; Hypertension; me1 - PSHx: 10:36 None; me1 - Immunization history:: Adult Immunizations up to date. - Infectious Disease History:: Denies. - Social history:: Smoking status: Patient/guardian denies using tobacco, but has a distant history of tobacco abuse. ROS: 10:46 Constitutional: as per hpi dr5 Exam: 10:46 Constitutional: This is a well developed, well nourished patient who is awake, alert, dr5 and in no acute distress. Head/Face: Normocephalic, atraumatic. Eyes: Pupils equal round and reactive to light, extra-ocular motions intact. Lids and lashes normal. Conjunctiva and sclera are non-icteric and not injected. Cornea within normal limits. Periorbital areas with no swelling, redness, or edema. Neck: Trachea midline, no thyromegaly or masses palpated, and no cervical lymphadenopathy. Supple, full range of motion without nuchal rigidity, or vertebral point tenderness. No Meningismus. Chest/axilla: Normal chest wall appearance and motion. Nontender with no deformity. No lesions are appreciated. Cardiovascular: Regular rate and rhythm with a normal S1 and S2. Normal PMI, no JVD. No pulse deficits. Respiratory: Lungs have equal breath sounds bilaterally, clear to auscultation. No rales, rhonchi or wheezes noted. No increased work of breathing, no retractions or nasal flaring. Back: No spinal tenderness. No costovertebral tenderness. Full range of motion. Neuro: Awake and alert, GCS 15, oriented to person, place, time, and situation. Cranial nerves II-XII grossly intact. Motor strength 5/5 in all extremities. Sensory grossly intact. Cerebellar exam normal. Normal gait. 10:46 Cardiovascular: Edema: 2+ edema to level of left knee and right knee, 3+ edema to level of left ankle, left foot, right ankle and right foot, 10:46 Musculoskeletal/extremity: Extremities: noted in the right leg and left leg: contusion, swelling, tenderness, Vital Signs: 10:32 BP 189 / 92; Pulse 71; Resp 18; Temp 98.4; Pulse Ox 97% ; Height 5 ft. 0 in. ; Pain me1 10/10; 13:36 BP 168 / 94; Pulse 69; Resp 20 S; Pulse Ox 100% on R/A; kc6 14:14 BP 178 / 71; Pulse 66; Resp 20; Pulse Ox 100% on R/A; kj2 10:32 Pain Scale: Adult me1 Procedures: 17:12 Splinting: Splint applied to left knee using steve wrap, applied by nurse. Examined by dr5 me, post splint application: neurovascular intact, 2+ distal pulses palpable, brisk capillary refill noted, Patient tolerated well. MDM: 10:19 Medical Screening Exam initiated dr5 17:12 Differential diagnosis: abrasion, fracture, Osteoarthritis of knees, Electrolyte dr5 abnormality, fracture. Data reviewed: vital signs, nurses notes, lab test result(s), radiologic studies. 17:12 Care significantly affected by the following chronic conditions: Hypertension, dr5 Hyperlipidemia. Care significantly affected by the following Social Determinants of Health: Poor access to healthcare and/or lack of insurance, Poor access to transportation, Problems related to employment. Counseling: I had a detailed discussion with the patient and/or guardian regarding the historical points, exam findings, and any diagnostic results supporting the discharge/admit diagnosis, the presence of at least one elevated blood pressure reading (>120/80) during this emergency department visit, lab results, radiology results, the need for outpatient follow up, for definitive care, a family practitioner, to return to the emergency department if symptoms worsen or persist or if there are any questions or concerns that arise at home. ED course: Patient given pain medication and steroid pack to help with inflammation. Labs and CT and x-rays were unremarkable other than the arthritis noted on her knees. Recommended alternating Tylenol Motrin as needed for inflammation and pain. Recommend patient follow-up primary care doctor this week. All questions answered. Strict ER precautions given.. 06/29 10:42 Order name: CBC with Diff; Complete Time: 14:28 06/29 10:42 Order name: CMP; Complete Time: 14:06/29 10:42 Order name: Troponin High Sensitivity; Complete Time: 14:06/29 10:42 Order name: NT PRO-BNP; Complete Time: 14:06/29 10:23 Order name: Elbow Left 3 View XRAY; Complete Time: 14:40 06/29 10:42 Order name: CT Head C Spine; Complete Time: 13:35 06/29 10:42 Order name: Knee Right 3 View XRAY; Complete Time: 14:40 06/29 10:42 Order name: Knee Left 3 View XRAY; Complete Time: 14:40 06/29 10:42 Order name: Chest Single View XRAY; Complete Time: 14:06/29 10:42 Order name: EKG - Nurse/Tech; Complete Time: 14:11 06/29 14:49 Order name: Steve Wrap dr5 EC:55 Rate is 66 beats/min. Rhythm is regular. QRS [place] is Normal. PA interval is normal at dr5 166 msec. QRS interval is normal at 398 msec. Administered Medications: 10:23 CANCELLED (Inappropriate at this time): lidocaine(1 %) 20 ml 20 ml Infiltration once; dr5 to bedside Disposition Summary: 06/29/24 14:48 Discharge Ordered Notes: Location: Home dr5 Condition: Stable dr5 Diagnosis - Fall on same level, unspecified dr5 Followup: dr5 - With: Emergency Department - When: As needed - Reason: Worsening of condition Followup: dr5 - With: Private Physician - When: 1 - 2 days - Reason: Recheck today's complaints, Continuance of care, Re-evaluation by your physician Discharge Instructions: - Discharge Summary Sheet dr5 - Fall Prevention in the Home, Adult dr5 Forms: - Medication Reconciliation Form dr5 - Antibiotic Education dr5 - Prescription Opioid Use dr5 - Patient Portal Instructions dr5 - Leadership Thank You Letter dr5 Prescriptions: - Ibuprofen 800 mg Oral Tablet - take 1 tablet ORAL route every 12 hours As needed take with food; 20 tablet; dr5 Refills: 0, Product Selection Permitted - Medrol (Sha) 4 mg Oral Tablets, Dose Pack - take 1 tablet ORAL route as directed - follow package instructions; 1 packet; dr5 Refills: 0, Product Selection Permitted Addendum: 06/30/2024 19:21 Co-signature as Attending Physician, Warren Clay MD I agree with the assessment and c leary plan of care. Signatures: Dispatcher [employer] Warren Jane MD MD cha Eddleman, Michelle, RN RN me1 Rafael Mosqueda, GUITAR REPAIRER-C GUITAR REPAIRER-Cdr5 Corrections: (The following items were deleted from the chart) 06/29 10:23 10:23 Lidocaine Infiltration (1 %) 20 ml 20 ml Infiltration once; to bedside ordered. dr5 dr5 10:23 10:23 Dressing - Wound ordered. dr5 dr5 10:23 10:23 Sutures, Prolene ordered. dr5 dr5 10:23 10:23 Setup Suture Tray ordered. dr5 dr5 10:43 10:43 CBC+H.LAB.BRZ ordered. EDMS EDMS 10:43 10:43 COMPREHENSIVE METABOLIC PANEL+C.LAB.BRZ ordered. EDMS EDMS 10:43 10:43 Troponin High Sensitivity+C.LAB.BRZ ordered. EDMS EDMS 10:43 10:43 PROBNP+C.LAB.BRZ ordered. EDMS EDMS 10:43 10:43 Knee Right 3 View+RAD.RAD.BRZ ordered. EDMS EDMS 10:43 10:43 Knee Left 3 View+RAD.RAD.BRZ ordered. EDMS EDMS 10:43 10:43 Chest Single View+RAD.RAD.BRZ ordered. EDMS EDMS
[2024-06-29 15:08] VITALS: TEMP 98.4
[2024-06-29 15:10] VITALS: O2SAT 100
[2024-06-29 15:12] VITALS: BP 178/71
--- NOTE | 2024-07-01 12:23 | EKG ---
Test Date: 2024-06-29 Test Time: 13:55:26 Medical Aide: EDELMIRA MEASUREMENT RESULTS: Intervals: Rate: 66 SC: 166 QRSD: 78 QT: 398 QTc: 417 [place]: P: 81 SC: 166 QRS: 22 T: 42 INTERPRETIVE STATEMENTS: Normal sinus rhythm Cannot rule out Anterior infarct, age undetermined Abnormal ECG Compared to ECG 09/01/2019 16:25:56 Myocardial infarct finding now present Electronically Signed On 07-01-24 12:19:26 CDT by Len Orellana
== END 2024-06-29 15:04 | disposition home or self-care (01) ==
LOC: ER 10:13
DX: M25.562 Pain in left knee (principal); M25.522 Pain in left elbow; W18.30XA Fall on same level, unspecified, initial encounter; I10 Essential (primary) hypertension; E78.00 Pure hypercholesterolemia, unspecified
CPT/HCPCS: 36415; 70450; 71045; 72125; 80053; 83880; 84484; 85025; 93005; 99283

== ENCOUNTER 2024-11-30 09:38 | Emergency (ER) | payer OTHER ==
--- NOTE | 2024-11-30 10:24 | RAD REPORT ---
Extremity Venous Uni Ltd CLINICAL INDICATION: Female, 84 years old.left leg swelling;Pain TECHNIQUE: Complete duplex sonography of the lower extremity veins was performed of the affected limb . The examination included compression for vein patency, color Doppler imaging and flow augmentation in response to distal compression of the distal external iliac, common femoral, femoral, popliteal, peroneal, tibial and great saphenous veins. [id number]. COMPARISON: No prior exams FINDINGS: Duplex sonography imaging demonstrates all deep veins examined to be fully compressible with spontane ous, phasic and augmented flow in the affected limb. IMPRESSION: No evidence of deep venous thrombosis in the left lower extremity.
--- NOTE | 2024-11-30 10:46 | RAD REPORT ---
EXAM: Knee Left 3 View INDICATION: PAIN COMPARISON: 06/29/2024 FINDINGS: No acute fracture. Small knee effusion Advanced tricompartmental degenerative changes including severe joint space loss laterally greater th an medially. Prominent marginal osteophytes and spurring at the tibial spine. Moderate patellofemoral compartment degenerative changes. Other: N/A IMPRESSION: No acute osseous abnormality involving the imaged knee. Degenerative changes as noted abo ve.
--- NOTE | 2024-11-30 11:04 | ER ---
Nurse's Notes [facility] Name: Negrita Shields Age: 84 yrs Sex: Female : 1940 Arrival Date: 11/30/2024 Time: 09:38 Bed 17 Private MD: Diagnosis: Effusion, left knee;Pain in left knee Presentation: 11/30 09:56 Chief complaint: Patient states: L knee pain and swelling since 11/05 after a fall from ss standing. Pt reports she had another fall from standing last week. Coronavirus screen: Client denies travel out of the [place] in the last 14 days. Ebola Screen: Patient denies exposure to infectious person. Patient denies travel to an Ebola-affected area in the 21 days before illness onset. Initial Sepsis Screen: Does the patient meet any 2 criteria? No. Patient's initial sepsis screen is negative. Does the patient have a suspected source of infection? No. Patient's initial sepsis screen is negative. Risk Assessment: Do you want to hurt yourself or someone else? Patient reports no desire to harm self or others. Onset of symptoms was November 05, 2024. 09:56 Method Of Arrival: Wheelchair ss 09:56 Acuity: TAYLOR 3 ss Triage Assessment: 09:58 General: Appears in no apparent distress. Behavior is calm. ss Historical: - Allergies: 09:58 No Known Allergies; ss - PMHx: 09:58 High Cholesterol; Hypertension; ss - Immunization history:: Client reports receiving the 2nd dose of the Covid vaccine. - Infectious Disease History:: Denies. - Social history:: Smoking status: Patient denies any tobacco usage or history of. - Family history:: not pertinent. - Hospitalizations: : No recent hospitalization is reported. Screenin:17 [facility] ED Fall Risk Assessment (Adult) History of falling in the last 3 months, db including since admission Yes- single mechanical fall (1 pt) Confusion or Disorientation No (0 pts) Intoxicated or Sedated No (0 pts) Impaired Gait No (0 pts) Mobility Assist Device Used No (0 pt) Altered Elimination No (0 pt) Score/Fall Risk Level 0 - 2 = Low Risk Oriented to surroundings, Maintained a safe environment. Abuse screen: Denies threats or abuse. Denies injuries from another. Nutritional screening: No deficits noted. Tuberculosis screening: No symptoms or risk factors identified. Assessment: 10:10 Reassessment: Patient appears in no apparent distress at this time. Patient and/or db family updated on plan of care and expected duration. Pain level reassessed. Patient is alert, oriented x 3, equal unlabored respirations, skin warm/dry/pink. GAS AND OIL CHECKER IS AT PATIENT BEDSIDE. General: Appears in no apparent distress. comfortable, Behavior is calm, cooperative. 11:16 Pain: Complains of pain in left knee. Musculoskeletal: Circulation, motion, and db sensation intact. Capillary refill < 3 seconds, Swelling present in left knee. 11:20 Reassessment: Patient appears in no apparent distress at this time. Patient and/or db family updated on plan of care and expected duration. Pain level reassessed. Patient is alert, oriented x 3, equal unlabored respirations, skin warm/dry/pink. Vital Signs: 09:56 BP 159 / 95; Pulse 86; Resp 16; Temp 98(O); Pulse Ox 100% on R/A; Weight 99.79 kg; ss Height 5 ft. 10 in. ; Pain 7/10; 11:19 BP 152 / 88; Pulse 85; Resp 16; Pulse Ox 100% on R/A; db 09:56 Body Mass Index 31.57 (99.79 kg, 177.8 cm) ss 09:56 Pain Scale: Adult ss Vitals: 11:19 Cardiac Rhythm Assessment Regular. db ED Course: 09:41 Patient arrived in ED. al6 09:42 Pardeep Man MD is Attending Physician. rn 09:58 Triage completed. ss 10:10 Eloisa Coronado, RN is Primary Nurse. db 10:20 Extremity Venous Uni Ltd US In Process Unspecified. EDMS 10:38 XRAY Knee LEFT 3 view In Process Unspecified. EDMS 11:17 No provider procedures requiring assistance completed. Patient did not have IV access db during this emergency room visit. 11:17 Steve wrap to left knee. db 11:17 Patient has correct armband on for positive identification. Provided Education on: db DISCHARGE AND FOLLOWUP. Pulse ox on. NIBP on. Administered Medications: No medications were administered Medication: 11:20 VIS not applicable for this client. db Outcome: 11:04 Discharge ordered by . rn 11:17 Discharged to home via wheelchair, with family, db 11:17 Condition: stable 11:17 Discharge instructions given to patient, Instructed on discharge instructions, follow up and referral plans. 11:20 Patient left the ED. db Signatures: Dispatcher [employer] EDPardeep Henriquez MD MD rn Blanchard, Shelby, RN RN ss Benton, Danielle, RN RN Ana Reyes Corrections: (The following items were deleted from the chart) 11:17 10:10 Reassessment: Patient appears in no apparent distress at this time. Patient db and/or family updated on plan of care and expected duration. Pain level reassessed. Patient is alert, oriented x 3, equal unlabored respirations, skin warm/dry/pink. GAS AND OIL CHECKER IS AT PATIENT BEDSIDE db 11:19 11:17 No provider procedures requiring assistance completed. db db
--- NOTE | 2024-11-30 11:04 | EDPHYS ---
Physician Documentation [facility] Name: Negrita Shields Age: 84 yrs Sex: Female : 1940 Arrival Date: 11/30/2024 Time: 09:38 Bed 17 Private MD: ED Physician Pardeep Man HPI: 11/30 11:01 This 84 yrs old Black Female presents to ER via Wheelchair with complaints of knee rn swelling. 11:01 Patient reports left knee pain, has fallen twice in the last few weeks. Last fall and rn injury was 1 week ago. Reports still mild swelling and bruising. Reports hurts more when she is not using it, is able to walk with assistance. No other injury. No hip injury or back injury.. Historical: - Allergies: :58 No Known Allergies; ss - PMHx: :58 High Cholesterol; Hypertension; ss - Immunization history:: Client reports receiving the 2nd dose of the Covid vaccine. - Infectious Disease History:: Denies. - Social history:: Smoking status: Patient denies any tobacco usage or history of. - Family history:: not pertinent. - Hospitalizations: : No recent hospitalization is reported. ROS: 11:01 Constitutional: Negative for fever, chills, and weight loss, Neck: Negative for injury, rn pain, and swelling, Cardiovascular: Negative for chest pain, palpitations, and edema, Respiratory: Negative for shortness of breath, cough, wheezing, and pleuritic chest pain, Abdomen/GI: Negative for abdominal pain, nausea, vomiting, diarrhea, and constipation, Back: Negative for injury and pain, MS/Extremity: Positive for left knee injury and swelling with pain Skin: Negative for injury, rash, and discoloration, Neuro: Negative for headache, weakness, numbness, tingling, and seizure, Exam: 11:01 Constitutional: This is a well developed, well nourished patient who is awake, alert, rn and in no acute distress. MS/ Extremity: Pulses equal, no cyanosis. Neurovascular intact. Mild painful range of motion left knee with ecchymosis on medial side. No focal bony tenderness. No pain of either hip. No pain with range of motion of right leg. Neuro: Awake and alert, GCS 15 Vital Signs: 09:56 BP 159 / 95; Pulse 86; Resp 16; Temp 98(O); Pulse Ox 100% on R/A; Weight 99.79 kg; ss Height 5 ft. 10 in. ; Pain 7/10; 11:19 BP 152 / 88; Pulse 85; Resp 16; Pulse Ox 100% on R/A; db 09:56 Body Mass Index 31.57 (99.79 kg, 177.8 cm) ss 09:56 Pain Scale: Adult ss MDM: 09:42 Medical Screening Exam initiated rn 11:01 Differential diagnosis: closed fracture, contusion. Data reviewed: vital signs, nurses rn notes, radiologic studies, plain films, ultrasound, and as a result, I will discharge patient. Independent interpretation of the following test(s) in the Emergency Department X-Ray: My interpretation is X-ray left knee images negative for acute fracture or dislocation per my interpretation. Counseling: I had a detailed discussion with the patient and/or guardian regarding the historical points, exam findings, and any diagnostic results supporting the discharge/admit diagnosis, radiology results, the need for outpatient follow up, to return to the emergency department if symptoms worsen or persist or if there are any questions or concerns that arise at home. Special discussion: I discussed with the patient/guardian in detail that at this point there is no indication for admission to the hospital. It is understood, however, that if the symptoms persist or worsen the patient needs to return immediately for re-evaluation. Based on the history and exam findings, there is no indication for further emergent testing or inpatient evaluation. I discussed with the patient/guardian the need to see the orthopedic surgeon for further evaluation of the symptoms. I discussed with the patient/guardian the need to see the primary care provider for further evaluation of the symptoms. ED course: No acute findings in imaging. Will discharge home with Steve wrap and rest.. 11/30 09:50 Order name: XRAY Knee LEFT 3 view; Complete Time: 10:52 rn 11/30 09:50 Order name: Extremity Venous [employer] US; Complete Time: 10:52 rn Administered Medications: No medications were administered Disposition Summary: 11/30/24 11:04 Discharge Ordered Notes: Location: Home rn Problem: an ongoing problem rn Symptoms: have improved rn Condition: Stable rn Diagnosis - Effusion, left knee rn - Pain in left knee rn Followup: rn - With: Private Physician - When: As needed - Reason: Recheck today's complaints, Re-evaluation by your physician Discharge Instructions: - Discharge Summary Sheet rn - How to Use a Knee Brace rn - Acute Knee Pain, Adult rn Forms: - Medication Reconciliation Form rn - Antibiotic electrical journeyman - Prescription Opioid Use rn - Patient Portal Instructions rn - Leadership Thank You Letter rn Signatures: Dispatcher [employer] Pardeep Gagnon MD MD rn Blanchard, Shelby, RN RN ss
[2024-11-30 11:26] VITALS: TEMP 98; O2SAT 100
[2024-11-30 11:27] VITALS: BP 152/88
== END 2024-11-30 11:20 | disposition home or self-care (01) ==
LOC: ER 09:38
DX: M25.462 Effusion, left knee (principal)
CPT/HCPCS: 93971; 99283